=== PATIENT | male | born 1960 | race Caucasian/White ===

== ENCOUNTER 2017-12-08 06:46 | Inpatient (IN) | payer OTHER, MEDICARE ==
[~2017-12-08] VITALS: Ht 167.6 cm; Wt 126.6 kg
[2017-12-08] VITALS (26 sets, daily range): BP systolic 105–169; BP diastolic 57–97; PULSE 76–111; RESP 20–44; TEMP 97.7–99.6; O2SAT 88–96
[2017-12-08] MEDS ORDERED: FUROSEMIDE 100 MG/10 ML VIAL IVP ONE (07:00)
[2017-12-08] MEDS ORDERED: MORPHINE SULFATE 4 MG/ML INJ IV ONE (07:00)
[2017-12-08] MEDS ORDERED: NITROGLYCERIN 2% OINT 1 GM PACKET TOPICAL ONE (07:00)
[2017-12-08] MEDS ORDERED: SODIUM CHLORIDE 0.9% FLUSH 10 ML FLUSH IVF PRN (07:00)
[2017-12-08 07:03] LABS: AUTOMATED NEUTROPHIL # 9.4 TH/MM3 (1.8-7.7); BASOPHIL # 0.2 TH/MM3 (0-0.2); BASOPHIL % 1.3 % (0.0-2.0); EOSINOPHIL # 0.5 TH/MM3 (0-0.4); EOSINOPHIL % 3.3 % (0.0-4.0); HEMATOCRIT 47.1 % (39.0-51.0); MEAN CELL VOLUME 90.2 FL (80.0-100.0); MEAN CORPUSCULAR HEMOGLOBIN 30.7 PG (27.0-34.0); MEAN PLATELET VOLUME 11.7 FL (7.0-11.0); MONO % 5.9 % (0.0-8.0); MONOCYTE # 0.8 TH/MM3 (0-0.9); NEUT % 67.5 % (16.0-70.0); PLATELET COUNT 299 TH/MM3 (150-450); RED BLOOD COUNT 5.22 MIL/MM3 (4.50-5.90); RED CELL DISTRIBUTION WIDTH 13.9 % (11.6-17.2); WHITE BLOOD COUNT 13.9 TH/MM3 (4.0-11.0)
[2017-12-08] MEDS: RESP: ALBUTEROL 2.5 MG/IPRATROPIUM 0.5 MG NEB (SCH) INH ×5 (07:07→21:58)
--- NOTE | 2017-12-08 07:14 | RADRPT ---
EXAM DATE: 12/08/2017 7:05 AM EDT AGE/SEX: 57 years / Male INDICATIONS: Shortness of breath. CLINICAL DATA: This is the patient's initial encounter. Patient reports that signs and symptoms have been present for 1 day and indicates a pain score of 0/10. MEDICAL/SURGICAL HISTORY: None. None. COMPARISON: No prior exams available for comparison. FINDINGS: There is cardiomegaly, and a dual-lead pacer/ICD device is noted from a left subclavian transvenous a pproach. There is patchy bilateral consolidation most pronounced in the right lower lobe. No definite effusion. Mild interstitial prominence is also seen. CONCLUSION: Bilateral pulmonary airspace disease and interstitial prominence. Pneumonia or alternatively congesti ve heart failure may have this appearance. Electronically signed by: Giuseppe Delgado MD 12/08/2017 7:13 AM EDT
[2017-12-08 07:15] LABS: BICARBONATE 24.7 MEQ/L (21.0-32.0); CALCIUM 8.4 MG/DL (8.5-10.1)
[2017-12-08 07:47] LABS: TROPONIN I 0.04 NG/ML (0.02-0.05)
[2017-12-08] MEDS ORDERED: PRAV40TA2 PO (07:50)
[2017-12-08] MEDS ORDERED: METF1000 PO (07:50)
[2017-12-08] MEDS ORDERED: LISI10TA3 PO (07:50)
[2017-12-08] MEDS ORDERED: ASPI81TA22 PO (07:50)
[2017-12-08] MEDS ORDERED: BUME1TAB PO (07:50)
[2017-12-08] MEDS ORDERED: ALBU.5I NEB (07:50)
[2017-12-08] MEDS ORDERED: WARF4TAB51 PO (07:50)
[2017-12-08] MEDS ORDERED: CARV6.252 PO (07:50)
[2017-12-08 07:51] LABS: CREATININE 1.1 MG/DL (0.60-1.30)
--- NOTE | 2017-12-08 08:13 | PD ---
HPI . Dyspnea Chief Complaint: Respiratory Distress Time Seen by Provider: 06:49 Travel History International Travel<30 days: No Contact w/Intl Traveler<30days: No Traveled to known affect area: No History of Present Illness HPI Patient presents to us via [facility] with the chief complaint of dyspnea. Onset was about a week ago. It is acutely worse this morning. Symptoms are severe and associated with diaphoresis. He reports a history of COPD and CHF. He also has a pacemaker. He has a home nebulizer machine. He does not have BiPAP or CPAP. No known modifying factors. PFSH Past Medical History Cardiovascular Problems: Yes (CHF, pacemaker/defib) High Cholesterol: Yes Congestive Heart Failure: Yes COPD: Yes Diabetes: Yes Patient Takes Glucophage: Yes (METFORMIN) Hypertension: Yes Respiratory: Yes (COPD) Immunizations Current: Yes Past Surgical History Pacemaker: Yes (AND DEFIBRILLATOR) Other Surgery: Yes (HERNIA REPAIR, VASCULAR BYPASS RIGHT LEG) Social History Alcohol Use: No Tobacco Use: Yes (1 PPD) Substance Use: No Allergies-Medications (Allergen,Severity, Reaction): Coded Allergies: No Known Allergies (Unverified , 12/08/17) Reported Meds & Prescriptions Reported Meds & Active Scripts Active Reported Albuterol Neb (Albuterol Sulfate) 2.5 Mg/0.5 Ml Neb 2.5 Mg NEB TID NEB PRN Note: The Albuterol Sulfate Inhalation Solution is concentrated and must be diluted. Read complete instructions carefully before using. Lisinopril 10 Mg Tab 10 Mg PO DAILY Aspirin EC Low Dose (Aspirin) 81 Mg Tabec 81 Mg PO DAILY Bumetanide 1 Mg Tab 1 Mg PO DAILY PRN Metformin (Metformin HCl) 1,000 Mg Tab 1,000 Mg PO BIDPC Warfarin 2 Mg Tab 4 Mg PO DAILY Pravastatin 40 Mg Tab 40 Mg PO HS Carvedilol 6.25 Mg Tab 6.25 Mg PO BID Review of Systems ROS Limitations: Clinical Condition General / Constitutional: Positive: Other (Diaphoresis), No: Fever, Chills Respiratory: Positive: Shortness of Breath Physical Exam Narrative GENERAL: This patient is in obvious respiratory distress. He is very diaphoretic. SKIN: Cool and diaphoretic. HEAD: Normocephalic. Atraumatic. EYES: Pupils equal and round. Extraocular movements are intact. ENT: Mucous membranes pink and moist. NECK: Supple. Full range of motion without pain.. CARDIOVASCULAR: Regular rate and rhythm. Tachycardic initially. RESPIRATORY: Tachypnea with use of accessory muscles. Diffuse rales and wheezing. GASTROINTESTINAL: Abdomen soft. Nontender. Bowel sounds present. Nondistended. MUSCULOSKELETAL: Left leg amputation. Right leg with 4+ pretibial pitting edema. NEUROLOGICAL: Awake and alert. No obvious cranial nerve deficits. Motor grossly within normal limits. Normal speech. PSYCHIATRIC: Appropriate mood and affect; insight and judgment normal. Data Data Last Documented VS Vital Signs Date Time Temp Pulse Resp B/P (MAP) Pulse Ox O2 Delivery O2 Flow Rate FiO2 12/08/17 07:42 100 32 139/67 (91) 93 BiPAP 100 12/08/17 06:50 97.7 Orders Orders Complete Blood Count With Diff (12/08/17 06:49) Basic Metabolic Panel (Bmp) (12/08/17 06:49) B-Type Natriuretic Peptide (12/08/17 06:49) Troponin I (12/08/17 06:49) Ecg Monitoring (12/08/17 06:49) Oximetry (12/08/17 06:49) Oxygen Administration (12/08/17 06:49) Chest, Single Ap (12/08/17 06:49) Sodium Chloride 0.9% Flush (Ns Flush) (12/08/17 07:00) Furosemide Inj (Lasix Inj) (12/08/17 07:00) Albuterol-Ipratropium Neb (Duoneb Neb) (12/08/17 07:00) Resp Bipap / Cpap Non Invas Vt (12/08/17 06:49) Nitroglycerin 2% Oint (Nitroglycerin 2% (12/08/17 07:00) Morphine Inj (Morphine Inj) (12/08/17 07:00) Electrocardiogram (12/08/17 ) Admit Order (Ed Use Only) (12/08/17 ) Investigation Division Sergeant / Telemetry LIANNE.Q8H (12/08/17 08:17) Vital Signs (Adult) Q4H (12/08/17 08:17) Diet Heart Healthy (12/08/17 Breakfast) Activity Oob With Assistance (12/08/17 08:17) Notify Dr: Other (12/08/17 08:17) Labs Laboratory Tests Test 12/08/17 06:55 White Blood Count 13.9 TH/MM3 Red Blood Count 5.22 MIL/MM3 Hemoglobin 16.0 GM/DL Hematocrit 47.1 % Mean Corpuscular Volume 90.2 FL Mean Corpuscular Hemoglobin 30.7 PG Mean Corpuscular Hemoglobin Concent 34.0 % Red Cell Distribution Width 13.9 % Platelet Count 299 TH/MM3 Mean Platelet Volume 11.7 FL Neutrophils (%) (Auto) 67.5 % Lymphocytes (%) (Auto) 22.0 % Monocytes (%) (Auto) 5.9 % Eosinophils (%) (Auto) 3.3 % Basophils (%) (Auto) 1.3 % Neutrophils # (Auto) 9.4 TH/MM3 Lymphocytes # (Auto) 3.0 TH/MM3 Monocytes # (Auto) 0.8 TH/MM3 Eosinophils # (Auto) 0.5 TH/MM3 Basophils # (Auto) 0.2 TH/MM3 CBC Comment DIFF FINAL Differential Comment Blood Urea Nitrogen 16 MG/DL Creatinine 1.10 MG/DL Random Glucose 429 MG/DL Calcium Level 8.4 MG/DL Sodium Level 138 MEQ/L Potassium Level 4.2 MEQ/L Chloride Level 104 MEQ/L Carbon Dioxide Level 24.7 MEQ/L Anion Gap 9 MEQ/L Estimat Glomerular Filtration Rate 69 ML/MIN Troponin I 0.04 NG/ML B-Type Natriuretic Peptide 278 PG/ML MDM Medical Decision Making Medical Screen Exam Complete: Yes Emergency Medical Condition: Yes Medical Record Reviewed: Yes (This patient basically has no records in our system.) Interpretation(s) EKG shows a paced rhythm. Initial EKG has a lot of artifact. It does show some ST segment depression in V1 and V2. Repeat EKG done a short time later shows improvement in the ST segment depression. I suspect that the EKG changes were secondary to both the diaphoresis and the profound dyspnea. Differential Diagnosis Differential diagnosis of dyspnea includes but is not limited to congestive heart failure, pneumonia, wheezing, pneumothorax, pulmonary embolism Narrative Course Patient presents to us by [facility] with acute dyspnea. He was treated by [facility] with a nebulizer treatment, Solu-Medrol and a sublingual nitroglycerin. He was also placed on BiPAP per [facility]. His symptoms were improved for them by the time of his arrival here. On arrival here, BiPAP was continued. He was given Lasix 100 mg IV. Nitropaste was placed. Morphine was given. His respiratory status has continued to rapidly improved. Last Impressions Chest X-Ray 12/08/17 0649 Signed Impressions: CONCLUSION: Bilateral pulmonary airspace disease and interstitial prominence. Pneumonia or alternatively congestive heart failure may have this appearance. The chest x-ray was independently reviewed by me. CBC & BMP Diagram 12/08/17 06:55 Calcium Level 8.4 L Troponin 0 0.04 BNP 278 The patient looks much better now than he did on arrival. Critical Care Narrative Aggregate critical care time was 45 minutes. Time to perform other separately billable procedures was not included in the critical care time. My time did not include minutes spent treating any other patients simultaneously or on activities that did not directly contribute to the patient's treatment. The services I provided to this patient were to treat and/or prevent clinically significant deterioration due to respiratory distress, pulmonary edema I provided critical care services requiring my management, as noted below: Chart data review, documentation time, medication orders and management, vital sign assessments/reviewing monitor data, ordering and reviewing lab tests, ordering and interpreting/reviewing x-rays and diagnostic studies, care of the patient and discussion of the patient with the admitting physicians Physician Communication Physician Communication Dr. 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 Dr. Greene will admit. Diagnosis Primary Impression: Respiratory distress Additional Impression: Acute pulmonary edema Admitting Information Admitting Physician Requests: Admit Condition: Dara Montiel MD Dec 08, 2017 08:13
[2017-12-08] MEDS ORDERED: RESP: ALBUTEROL 2.5 MG/3 ML NEB (PRN) INH (08:30)
[2017-12-08] MEDS ORDERED: CHLORHEXIDINE GLUCONATE 2 % 1 PACK (2 CLOTHS) TOP PRN (08:30)
[2017-12-08] MEDS ORDERED: LACTULOSE SYRUP 20 GM/30 ML CUP PO PRN (08:30)
[2017-12-08] MEDS ORDERED: NURSING INFORMATION XX SCH (08:30)
[2017-12-08] MEDS ORDERED: ACETAMINOPHEN/HYDROcodone 325 MG/5 MG TAB PO PRN (08:30)
[2017-12-08] MEDS ORDERED: MAGNESIUM HYDROXIDE SUSP 30 ML CUP PO PRN (08:30)
[2017-12-08] MEDS ORDERED: ONDANSETRON HCL 4 MG/2 ML VIAL IV PUSH PRN (08:30)
[2017-12-08] MEDS ORDERED: MORPHINE SULFATE 4 MG/ML INJ IV PUSH PRN (08:30)
[2017-12-08] MEDS ORDERED: SENNOSIDES 8.6 MG TAB PO PRN (08:30)
[2017-12-08] MEDS ORDERED: BISACODYL 10 MG SUPP RECTAL PRN (08:30)
[2017-12-08] MEDS ORDERED: ACETAMINOPHEN 325 MG TAB PO PRN (08:30)
[2017-12-08] MEDS: ARTIFICIAL TEARS OPTH SOLN 15 ML BTL EACH EYE SCH ×3 (09:00→17:29)
[2017-12-08] MEDS: DOCUSATE SODIUM 50 MG/SENNA 8.6 MG TAB PO SCH ×2 (09:00→20:30)
[2017-12-08] MEDS ORDERED: CHLORHEXIDINE GLUCONATE 2 % 1 PACK (2 CLOTHS)(extra cloths) TOPICAL PRN (09:15)
[2017-12-08] MEDS ORDERED: DEXTROSE 50% IN WATER 50 ML VIAL(D50) IV PUSH PRN (09:15)
[2017-12-08] MEDS ORDERED: GLUCAGON 1 MG/ML VIAL OTHER PRN (09:15)
[2017-12-08 09:16] LABS: MAGNESIUM 1.8 MG/DL (1.5-2.5)
[2017-12-08 09:17] LABS: ALBUMIN 3.5 GM/DL (3.4-5.0)
[2017-12-08 09:19] LABS: DIRECT BILIRUBIN ADULT 0.2 MG/DL (0.0-0.2)
[2017-12-08 09:21] LABS: INDIRECT BILIRUBIN 0.5 MG/DL (0.0-0.8); TOTAL BILIRUBIN ADULT 0.7 MG/DL (0.2-1.0)
[2017-12-08 09:22] LABS: INTERNATIONAL NORMALIZED RATIO 3.1 RATIO; PROTHROMBIN TIME - PATIENT 31.4 SEC (9.8-11.6)
--- NOTE | 2017-12-08 09:28 | HHI.HP ---
[facility] Service Critical Care Medicine Primary Care Physician Julien Bird MD Admission Diagnosis resp distress, pulm edema Diagnosis: (1) Acute respiratory failure with hypoxia and hypercapnia Diagnosis: Principal (2) Coronary artery disease Diagnosis: Secondary (3) Chronic venous stasis Diagnosis: Secondary (4) Peripheral arterial disease Diagnosis: Secondary (5) History of automatic internal cardiac defibrillator (AICD) Diagnosis: Secondary (6) Chronic systolic heart failure Diagnosis: Principal (7) Hyperlipidemia Diagnosis: Secondary (8) Essential hypertension Diagnosis: Principal (9) Diabetes mellitus with diabetic neuropathy Diagnosis: Secondary (10) BMI 45.0-49.9, adult Diagnosis: Principal (11) COPD (chronic obstructive pulmonary disease) Diagnosis: Secondary Chief Complaint: Shortness of breath 1 week Travel History International Travel<30 Days: No Contact w/Intl Traveler <30 Da: No Traveled to Known Affected Are: No Sepsis Criteria SIRS Criteria (2 or more): RR > 20 or PaCO2 < 32, WBC > 59992, < 4000 or > 10 % bands Sepsis Criteria (SIRS+source): Infect source susp/known History of Present Illness This is a 57-year-old male. Date of admission 12/08/2017. Past medical history includes elevated BMI, chronic systolic heart failure, history of ASD, chronic anticoagulation with warfarin, hypertension/essential, hyperlipidemia, COPD with ongoing tobaccoism, diabetes mellitus with neuropathy , coronary disease with history of myocardial infarction and peripheral arterial disease history of a left lower extremity amputation. Patient presents to [facility] with history of "shortness of breath" since reported per patient November 24. At that time he seen by his physician as an outpatient receiving oral antibiotic was treated for 10 days. He has been taking care of his parents and is not been taking his diuretics were his medications as scheduled at home. This morning, patient awoke acutely short of breath associated diaphoresis At this facility. Chest x-ray revealed bilateral pulmonary infiltrates infectious versus coronary edema. Troponin was 0.04. EKG shows some ST depression V1 and V2 however resolved on second chest x-ray after receiving Nitropaste and 100 mg IV furosemide. No Escobar placed the patient states he is "urinate" 2 times. He appears more comfortable according to staff. Respiratory rate is currently 25 and appears comfortable. FiO2 still at 100%. Review of Systems Constitutional: COMPLAINS OF: Diaphoretic episodes, Weight gain, DENIES: Fatigue, Fever, Weight loss Endocrine: DENIES: Polydipsia, Polyuria Eyes: DENIES: Blurred vision, Double Vision Ears, nose, mouth, throat: DENIES: Ear Pain Respiratory: COMPLAINS OF: Shortness of breath, DENIES: Apneas, Cough, Sputum production Cardiovascular: DENIES: Chest pain Gastrointestinal: DENIES: Abdominal pain Genitourinary: DENIES: Urgency, Hematuria, Dysuria, Nocturia Musculoskeletal: DENIES: Joint pain Integumentary: COMPLAINS OF: Abnormal pigmentation, DENIES: Nail changes Hematologic/lymphatic: DENIES: Bruising Immunologic/allergic: DENIES: Eczema Neurologic: DENIES: Abnormal gait, Headache Psychiatric: COMPLAINS OF: Anxiety, DENIES: Confusion Past Family Social History Allergies: Coded Allergies: No Known Allergies (Unverified , 12/08/17) Past Medical History Elevated BMI COPD with ongoing tobaccoism Essential hypertension Hyperlipidemia Chronic systolic heart failure Peripheral arterial disease status post amputation of the left lower extremity Diabetes mellitus with peripheral neuropathy History of hypercoagulable state PAD Chronic warfarin use Past Surgical History AICD/defibrillator Hernia repair Left lower extremity amputation with history of thrombectomy and femoropopliteal bypass Right lower extremity femorofemoral bypass with graft removal Reported Medications Aspirin 81 mg by mouth daily Pravastatin 40 mg by mouth daily Lisinopril 10 mg by mouth daily Carvedilol 6.25 mg by mouth twice daily Warfarin 4 mg by mouth daily Bumetanide 1 mg by mouth as needed Metformin 1000 mg by mouth daily Albuterol/ipratropium aerosols as needed Active Ordered Medications Reviewed in EMR Family History Positive for coronary disease and peripheral vascular disease Social History 1 pack per day tobacco 40 years. Positive occasional THC use. Denies alcohol use. Physical Exam Vital Signs Vital Signs Date Time Temp Pulse Resp B/P (MAP) Pulse Ox O2 Delivery O2 Flow Rate FiO2 12/08/17 07:42 100 32 139/67 (91) 93 BiPAP 100 12/08/17 07:15 44 93 BiPAP 100 12/08/17 07:15 93 BiPAP 100 12/08/17 07:12 105 36 161/80 (107) 94 BiPAP 100 12/08/17 07:00 120 48 93 BiPAP 100 12/08/17 06:50 92 BiPAP 100 12/08/17 06:50 97.7 111 169/82 (111) 12/08/17 06:50 93 100 Physical Exam GENERAL: 57-year-old male currently resting in ED bed 19 [place] on BiPAP in mild respiratory distress SKIN: Warm and dry. Chronic venous stasis right lower extremity. HEAD: Atraumatic. Normocephalic. EYES: Pupils equal and round about 3 mm bilaterally and reactive to 2. No scleral icterus. No injection or drainage. ENT: No nasal bleeding or discharge. Mucous membranes pink and moist. NECK: Trachea midline. Unable to define JVD secondary to body habitus CARDIOVASCULAR: Tachycardic/paced. S1, S2. No S4. Without murmur RESPIRATORY: Mild accessory muscle use. Diminished anteriorly. Few crackles patient in the t bases bilaterally. Positive end expiratory wheeze GASTROINTESTINAL: Abdomen soft, non-tender, nondistended. Hepatic and splenic margins not palpable. MUSCULOSKELETAL: Extremities DVTs in the left lower extremity above the knee. Right lower extremity chronic venous stasis and 1+ pitting edema below the knee. NEUROLOGICAL: Awake and alert. No obvious cranial nerve deficits. Motor grossly within normal limits. Five out of 5 muscle strength in the arms and legs. Normal speech. Diminished sensation light touch pinprick bilateral lower extremities PSYCHIATRIC: Appropriate mood and affect; insight and judgment normal. Laboratory Laboratory Tests Test 12/08/17 06:55 12/08/17 09:00 White Blood Count 13.9 Red Blood Count 5.22 Hemoglobin 16.0 Hematocrit 47.1 Mean Corpuscular Volume 90.2 Mean Corpuscular Hemoglobin 30.7 Mean Corpuscular Hemoglobin Concent 34.0 Red Cell Distribution Width 13.9 Platelet Count 299 Mean Platelet Volume 11.7 Neutrophils (%) (Auto) 67.5 Lymphocytes (%) (Auto) 22.0 Monocytes (%) (Auto) 5.9 Eosinophils (%) (Auto) 3.3 Basophils (%) (Auto) 1.3 Neutrophils # (Auto) 9.4 Lymphocytes # (Auto) 3.0 Monocytes # (Auto) 0.8 Eosinophils # (Auto) 0.5 Basophils # (Auto) 0.2 CBC Comment DIFF FINAL Differential Comment Blood Urea Nitrogen 16 Creatinine 1.10 Random Glucose 429 Calcium Level 8.4 Sodium Level 138 Potassium Level 4.2 Chloride Level 104 Carbon Dioxide Level 24.7 Anion Gap 9 Estimat Glomerular Filtration Rate 69 Magnesium Level 1.8 Troponin I 0.04 B-Type Natriuretic Peptide 278 Albumin 3.5 Blood Gas Puncture Site RT RADIAL Blood Gas Patient Temperature 98.6 Blood Gas HCO3 26 Blood Gas Base Excess 0.8 Blood Gas Oxygen Saturation 91 Arterial Blood pH 7.32 Arterial Blood Partial Pressure CO2 53 Arterial Blood Partial Pressure O2 77 Arterial Blood Oxygen Content 20.0 Arterial Blood Carboxyhemoglobin 2.8 Arterial Blood Methemoglobin 1.1 Blood Gas Hemoglobin 15.6 Oxygen Delivery Device BIPAP Blood Gas Ventilator Setting IPAP18/EPAP5 Blood Gas Inspired Oxygen 100 Result Diagram: 12/08/1765412/08/17654 Imaging Last Impressions Chest X-Ray 12/08/17648 Signed Impressions: CONCLUSION: Bilateral pulmonary airspace disease and interstitial prominence. Pneumonia or alternatively congestive heart failure may have this appearance. Septic Shock Reassessment Septic shock perfusion: reassessment completed Caprini VTE Risk Assessment Caprini VTE Risk Assessment: Mod/High Risk (score >= 2) VTE Pharm Contraindication: Documented Caprini Risk Assessment Model Point Value = 1 Point Value = 2 Point Value = 3 Point Value = 5 Age 41-60 Minor surgery BMI > 25 kg/m2 Swollen legs Varicose veins or History of unexplained or recurrent spontaneous Oral contraceptives or hormone replacement Sepsis (< 1 month) Serious lung disease, including pneumonia (< 1 month) Abnormal pulmonary function Acute myocardial infarction Congestive heart failure (< 1 month) History of inflammatory bowel disease Medical patient at bed rest Age 61-74 Arthroscopic surgery Major open surgery (> 45 min) Laparoscopic surgery (> 45 min) Malignancy Confined to bed (> 72 hours) Immobilizing plaster cast Central venous access Age >= 75 History of VTE Family history of VTE Factor V Leiden Prothrombin [id number] Lupus anticoagulant Anticardiolipin antibodies Elevated serum homocysteine Heparin-induced thrombocytopenia Other congenital or acquired thrombophilia Stroke (< 1 month) Elective arthroplasty Hip, pelvis, or leg fracture Acute spinal cord injury (< 1 month) Prophylaxis Regimen Total Risk Factor Score Risk Level Prophylaxis Regimen 0-1 Low Early ambulation 2 Moderate Order ONE of the following: *Sequential Compression Device (SCD) *Heparin 5000 units SQ BID 3-4 Higher Order ONE of the following medications: *Heparin 5000 units SQ TID *Enoxaparin/Lovenox 40 mg SQ daily (WT < 150 kg, CrCl > 30 mL/min) *Enoxaparin/Lovenox 30 mg SQ daily (WT < 150 kg, CrCl > 10-29 mL/min) *Enoxaparin/Lovenox 30 mg SQ BID (WT < 150 kg, CrCl > 30 mL/min) AND/OR *Sequential Compression Device (SCD) 5 or more Highest Order ONE of the following medications: *Heparin 5000 units SQ TID (Preferred with Epidurals) *Enoxaparin/Lovenox 40 mg SQ daily (WT < 150 kg, CrCl > 30 mL/min) *Enoxaparin/Lovenox 30 mg SQ daily (WT < 150 kg, CrCl > 10-29 mL/min) *Enoxaparin/Lovenox 30 mg SQ BID (WT < 150 kg, CrCl > 30 mL/min) AND *Sequential Compression Device (SCD) Assessment and Plan Assessment and Plan Neuro/Psych: Diabetes mellitus neuropathy Acetaminophen 650 mg every 6 hours as needed fever Hydrocodone/acetaminophen 5/325 1 tab every 4 hours as needed pain 1 through 5 Morphine sulfate 2 mg IV every 2 hours as needed pain 6-10 CV: Chronic systolic heart failure Essential hypertension Hyperlipidemia Status post AICD/pacemaker Peripheral arterial disease status post left lower extremity amputation Resume home medications of carvedilol 6.25 mg twice daily and lisinopril 10 mg daily for hypertension Continue pravastatin 40 mg by mouth daily for dyslipidemia Continue aspirin 81 mg by mouth daily EKG revealed paced rhythm. Modifiable ST depression V1 and V2. Initial troponin 0.04. Will trend downward Routine 2D echocardiogram ordered 2011 echo revealed EF 35%. Inferior posterior hypokinesis. LV dilated. Resp: Acute hypoxic hypercapnic respiratory failure COPD Currently on BiPAP 18/8 100%. PH 6 7.32. PCO2 53. PO2 of 77. Bicarbonate 26 BE 1. Currently on albuterol/ipratropium aerosols every 6 hours W aerosols every 2 hours needed dyspnea On albuterol/ipratropium nebs at home Methylprednisolone 40 mg IV twice daily/budesonide 0.5/2 1 inhalation twice daily Chest x-ray revealed bilateral lower lobe pulmonary edema/infiltrates. Received 100 cc furosemide in ED. scheduled twice daily 40 mg for Chest x-ray ordered for a.m. 6/10 GI: Advance diet as tolerated ADA Famotidine for GI prophylaxis Docusate sodium/senna 1 tablet twice daily for bowel regimen Follow-up on hepatic profile : Escobar catheter if indicated for accurate I's and O's in a critically ill patient Endo: Diabetes mellitus with neuropathy SSI with Novulin R with Accu-Cheks before meals/at bedtime in order to maintain the lithium/high regimen Renal: Creatinine currently within normal limits Monitor urine output Accurate I's and O's Heme: Chronic warfarin use secondary to hypercoagulable state question sallie Normocytic anemia Coags currently pending Monitor CBC daily. Follow trends ID: Blood cultures 2, sputum and influenza all ordered Empiric antibiotics with levofloxacin 750 mg IV daily MSK: BMI 46.1 Weight loss encouraged PT evaluate and treat FEN: Replace electrolytes as clinically indicated per ICU electrolyte protocol Access -Utilize peripheral IV. Central line if indicated Prophylaxis -GI -famotidine -DVT -SCD/patient is currently on warfarin to provide pharmacological prophylaxis Level 3 H&P Code Status Full code Discussed Condition With Dr. Odom/ED physicians. Patient. Care plan discussed and all questions answered. Problem Qualifiers (1) Coronary artery disease: Qualified Codes: I25.10 - Atherosclerotic heart disease of rincon coronary artery without angina pectoris (2) Hyperlipidemia: Qualified Codes: E78.5 - Hyperlipidemia, unspecified (3) Diabetes mellitus with diabetic neuropathy: Qualified Codes: E10.40 - Type 1 diabetes mellitus with diabetic neuropathy, unspecified (4) COPD (chronic obstructive pulmonary disease): Qualified Codes: J44.1 - Chronic obstructive pulmonary disease with (acute) exacerbation Bashir Greene MD Dec 08, 2017 09:28
[2017-12-08] MEDS ORDERED: POTASSIUM CHLORIDE 25 MEQ EFFERVESCENT TAB PO PRN (09:45)
[2017-12-08] MEDS ORDERED: POTASSIUM PHOSPHATE MONOBASIC 500 MG TAB PO/TUBE PRN (09:45)
[2017-12-08] MEDS ORDERED: MAGNESIUM SULFATE INJ 4 GM in SODIUM CHLORIDE 0.9% INJ 92 ML IV PRN (09:45)
[2017-12-08] MEDS ORDERED: MAGNESIUM OXIDE 400 MG TAB PO PRN (09:45)
[2017-12-08] MEDS ORDERED: POTASSIUM CHLOR 20 MEQ PREMIX 100 ML IV PRN ×2 (09:45)
[2017-12-08] MEDS ORDERED: SODIUM PHOSPHATE INJ 30 MMOL in SODIUM CHLOR 0.9% 250 ML INJ 240 ML IV PRN (09:45)
[2017-12-08] MEDS ORDERED: POTASSIUM PHOSPHATE INJ 30 MMOL in SODIUM CHLOR 0.9% 250 ML INJ 250 ML IV PRN (09:45)
[2017-12-08] MEDS ORDERED: MAGNESIUM SULFATE INJ 2 GM in SODIUM CHLORIDE 0.9% INJ 96 ML IV PRN (09:45)
[2017-12-08] MEDS ORDERED: POTASSIUM CHLOR 40 MEQ PREMIX 100 ML IV PRN ×2 (09:45)
[2017-12-08] MEDS ORDERED: POTASSIUM PHOSPHATE MONOBASIC 500 MG TAB PO PRN (09:45)
[2017-12-08] MEDS: LEVOFLOXACIN 750 MG PREMIX INJ 150 ML IV SCH (10:14)
[2017-12-08] MEDS: FAMOTIDINE 20 MG/2 ML VIAL IV PUSH SCH ×2 (10:15→20:30)
[2017-12-08] MEDS: SODIUM CHLORIDE 0.9% FLUSH 10 ML FLUSH IV FLUSH SCH ×2 (10:16→20:31)
[2017-12-08] MEDS: methylPREDNISolone SOD SUCC 40 MG/1 ML VIAL IV PUSH SCH ×2 (10:21→20:29)
--- NOTE | 2017-12-08 12:12 | RADRPT ---
EXAM DATE: 12/08/2017 12:09 PM EDT AGE/SEX: 57 years / Male INDICATIONS: Right leg swelling. CLINICAL DATA: This is the patient's initial encounter. Patient reports that signs and symptoms have been present for 1 day and indicates a pain score of 0/10. MEDICAL/SURGICAL HISTORY: Hypercholesterolemia. Hypertension. Chronic obstructive pulmonary d isease. CHF. Hernia. . Hernia repair. Pacemaker. Right leg vascular bypass. COMPARISON: No prior exams available for comparison. TECHNIQUE: Venous ultrasound of both lower extremities was performed from the inguinal ligament to t he proximal calf. Real-time, color Doppler and spectral tracing, compression and augmentation techni ques were used. FINDINGS: There is normal compressibility of the deep venous system from the inguinal region to the proximal ca lf. No echogenic clot is seen in the lumen of the common femoral, femoral, popliteal, and posterior tibial veins. There is a normal response of the venous system to proximal and distal augmentation an d respiration. CONCLUSION: 1. The study is negative for lower extremity deep venous thrombosis. Electronically signed by: Adalid Aguilera MD 12/08/2017 12:11 PM EDT
[2017-12-08] MEDS: INSULIN ASPART SUPPLEMENTAL SCALE SQ SCH ×3 (12:52→20:28)
[2017-12-08] MEDS: INSULIN DETEMIR 100 UNITS/ML VIAL SQ SCH ×2 (12:52→20:28)
[2017-12-08] MEDS ORDERED: CHLOROTHIAZIDE SOD 500 MG VIAL IV ONE (13:00)
--- NOTE | 2017-12-08 14:45 | EKG ---
Date Performed: 12/08/2017 Time Performed: 07:27:34 PTAGE: 57 years EKG: ELECTRONIC VENTRICULAR PACEMAKER ABNORMAL RHYTHM ECG NO PREVIOUS TRACING DOCTOR: Bayron Sorenson Interpretating Date/Time 12/08/2017 14:44:07
[2017-12-08] MEDS ORDERED: WARFARIN SOD 4 MG TAB PO SCH (16:00)
[2017-12-08] MEDS: FUROSEMIDE 40 MG/4 ML VIAL IV PUSH SCH (17:29)
[2017-12-08 19:11] LABS: PHOSPHORUS 3.4 MG/DL (2.5-4.9)
[2017-12-08 19:15] LABS: TROPONIN I 0.06 NG/ML (0.02-0.05)
[2017-12-08] MEDS: RESP: BUDESONIDE 0.5 MG/2 ML NEB NEB SCH (20:06)
[2017-12-08] MEDS: PRAVASTATIN SOD 40 MG TAB PO SCH (20:30)
[2017-12-08] MEDS: CARVEDILOL 6.25 MG TAB PO SCH (20:30)
--- NOTE | 2017-12-08 22:39 | MB ---
cc: Jaspreet Gibbons Vincent G DO DATE: 12/08/2017 REASON FOR CONSULTATION: Pulmonary edema. HISTORY OF PRESENT ILLNESS: Tre Agudelo is a pleasant 57-year-old male who sees my partner, Dr. Sorenson, in the office and presented to [facility] Emergency Room due to shortness of breath. The patient states that he had a stress test somewhere around a year ago with Dr. Sorenson. He states that he had been noticing some shortness of breath as well as mucus production since 10/2005. He was placed on an antibiotic by his primary care physician and, after taking it for 10 days, he called them and stated that he was not feeling better and thought maybe it was somewhat his allergies. They said that he should not be placed on further antibiotics before being evaluated. He came into the emergency room and was found to be short of breath. He has since been diuresed and feeling somewhat better. He denies any chest pain. He has been taking care of his parents and has not been taking his diuretics as scheduled as his medications are at home. Before being evaluated he woke up more short of breath this morning and somewhat diaphoretic and so he came to the emergency room. He denies any chest pain with the episodes. He was found to have bilateral pulmonary infiltrates concerning for pulmonary edema and he has since been diuresed. In seeing him, he is currently hemodynamically stable without chest pain and his shortness of breath is overall better. PAST MEDICAL HISTORY: 1. COPD. 2. Hypertension. 3. Hyperlipidemia. 4. Chronic systolic heart failure. 5. Peripheral artery disease. 6. Diabetes mellitus with peripheral neuropathy. 7. History of hypercoagulable state. 8. Chronic anticoagulation with Coumadin. PAST SURGICAL HISTORY: 1. AICD placement. 2. Hernia repair. 3. 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 4. Right lower extremity fem-fem bypass with graft removal. ALLERGIES: NO KNOWN DRUG ALLERGIES. MEDICATIONS: 1. Albuterol as needed for shortness of breath. 2. Coumadin 4 mg daily. 3. Pravastatin 4 mg every night. 4. Coreg 6.25 mg b.i.d. 5. Lisinopril 10 mg daily. 6. Aspirin 81 mg daily. 7. Bumex 1 mg daily as needed. 8. Metformin 1000 mg b.i.d. FAMILY HISTORY: Positive for coronary artery disease and peripheral vascular disease. Denies sudden cardiac within the family. SOCIAL HISTORY: The patient smokes a pack a day of cigarettes for 40 years. He occasionally uses marijuana. Denies alcohol. REVIEW OF SYSTEMS: Fourteen systems were reviewed including osteopathic. Pertinent positives and negatives as above, otherwise negative. PHYSICAL EXAMINATION: VITAL SIGNS: Temperature 98.2, heart rate 92, blood pressure 112/86, respirations 28, pulse oximetry 95% on a Venturi mask. GENERAL: The patient appears well in no acute distress, alert, awake and oriented x3. HEENT: Extraocular muscles intact. Mucous membranes moist. NECK: Supple. No JVD at 45 degrees. No carotid bruits heard bilaterally. Carotid upstroke is brisk in nature. HEART: Regular rate and rhythm. Positive first and second heart sounds with no noted murmurs, gallops or rubs. LUNGS: Decreased breath sounds bilaterally with rales noted at the bases. ABDOMEN: Soft, nontender, nondistended. No organomegaly noted. EXTREMITIES: Show left [id number] amputation. Right lower extremity with trace edema. NEUROLOGIC: No focal deficits. SKIN: Warm, dry and intact. OSTEOPATHIC: Mild lordosis, no kyphoscoliosis or paraspinal tender points. LABORATORY DATA: Hemoglobin 16.0, hematocrit 47.1, platelets 299. INR 3.1, potassium 4.2, BUN 16, creatinine 1.10. Troponin 0.09 decreasing to 0.06. Lactic acid 2.3. CARDIOLOGY STUDIES: Electrocardiogram (12/08/2017 at 0727): Sinus rhythm with ventricular pacing. ASSESSMENT AND PLAN: 1. Acute decompensated systolic heart failure. 2. Elevated troponin. 3. Acute hypoxic hypercapnic respiratory failure. 4. Chronic obstructive pulmonary disease. 5. Diabetes mellitus with neuropathy. 6. Obesity with a body mass index of 46. 7. Noncompliance with his diuretics. 8. Known cardiomyopathy with implantable cardioverter defibrillator in place. 9. Lactic acidosis. RECOMMENDATIONS: 1. Mr. Agudelo presented with what appears to be shortness of breath, most likely multifactorial, partially due to acute decompensated heart failure as well as chronic obstructive pulmonary disease exacerbation. We will continue to diurese him, as I think a significant portion of his shortness of breath is due to heart failure. This is most likely due to noncompliance with his diuretics, as he has been taking care of his parents and not at home taking them as regularly scheduled. 2. He will continue on Coumadin for his chronic hypercoagulable state. 3. He does have a minimally elevated troponin, but this is most likely due to his overall illness including his acute heart failure. 4. We will continue him on his carvedilol and lisinopril for his known cardiomyopathy. Per the office records, his previous ejection fraction was 25%. 5. We will check a 2-Dimensional echocardiogram to look at his overall left ventricular function, cardiac structure and possible valvulopathies. 6. Further recommendations will be made based on the hospital course. Thank you for allowing me to see Scott. Agudelo. If you have any questions, please do not hesitate to call. DO ELIZABETH Damon/ , 09:20 PM , 10:38 PM
[2017-12-09] VITALS (44 sets, daily range): BP systolic 96–161; BP diastolic 52–96; PULSE 66–98; RESP 16–33; TEMP 97.5–98.4; O2SAT 71–99
[2017-12-09] MEDS: RESP: ALBUTEROL 2.5 MG/IPRATROPIUM 0.5 MG NEB (SCH) INH ×4 (03:50→22:08)
[2017-12-09] MEDS ORDERED: CHLORHEXIDINE GLUCONATE 2 % 1 PACK (2 CLOTHS) TOP SCH (04:00)
[2017-12-09] MEDS: CHLORHEXIDINE GLUCONATE 2 % 1 PACK (2 CLOTHS)(taper/protocol) TOPICAL SCH (04:00)
[2017-12-09] MEDS ORDERED: INSULIN ASPART 1,000 UNITS/10 ML VIAL SQ ONE (04:15)
--- NOTE | 2017-12-09 05:59 | RADRPT ---
EXAM DATE: 12/09/2017 5:52 AM EDT AGE/SEX: 57 years / Male INDICATIONS: Shortness of breath. CLINICAL DATA: This is the patient's subsequent encounter. Patient reports that signs and symptoms h ave been present for 2 days and indicates a pain score of Nonresponsive. MEDICAL/SURGICAL HISTORY: Hypercholesterolemia. Hypertension. Chronic obstructive pulmonary d isease. Congestive heart failure. Hernia. Pacemaker. Hernia repair. Right leg vascular bypass. COMPARISON: [facility], CHEST SINGLE AP, 12/08/2017. . FINDINGS: Single view the chest the heart slightly enlarged. There is a left subclavian bipolar pacer in good p osition. Mild pulmonary vascular congestion improved from the previous study CONCLUSION: Heart is enlarged. Mild pulmonary vascular congestion has improved Electronically signed by: César Beauchamp MD 12/09/2017 5:57 AM EDT
[2017-12-09 06:42] LABS: AUTOMATED NEUTROPHIL # 14.1 TH/MM3 (1.8-7.7); BASOPHIL # 0.3 TH/MM3 (0-0.2); BASOPHIL % 1.8 % (0.0-2.0); HEMATOCRIT 45.9 % (39.0-51.0); HEMOGLOBIN 15.5 GM/DL (13.0-17.0); LYMPH % 6.9 % (9.0-44.0); LYMPHOCYTE # 1.1 TH/MM3 (1.0-4.8); MEAN CELL VOLUME 90.1 FL (80.0-100.0); MEAN CORPUSCULAR HEMOGLOBIN 30.5 PG (27.0-34.0); MEAN CORPUSCULAR HGB CONC 33.8 % (32.0-36.0); MEAN PLATELET VOLUME 11.2 FL (7.0-11.0); MONO % 3.8 % (0.0-8.0); MONOCYTE # 0.6 TH/MM3 (0-0.9); NEUT % 87.5 % (16.0-70.0); PLATELET COUNT 252 TH/MM3 (150-450); RED CELL DISTRIBUTION WIDTH 13.4 % (11.6-17.2); WHITE BLOOD COUNT 16.1 TH/MM3 (4.0-11.0)
[2017-12-09 06:59] LABS: INTERNATIONAL NORMALIZED RATIO 2.6 RATIO; PROTHROMBIN TIME - PATIENT 26.5 SEC (9.8-11.6)
[2017-12-09 07:44] LABS: ALBUMIN 3.3 GM/DL (3.4-5.0); BLOOD UREA NITROGEN 30 MG/DL (7-18); GLOMERULAR FILTRATION RATE 62 ML/MIN (>89); GLUCOSE,RANDOM 368 MG/DL (74-106); PHOSPHORUS 3.8 MG/DL (2.5-4.9); TOTAL PROTEIN 7.4 GM/DL (6.4-8.2)
[2017-12-09 07:45] LABS: ALKALINE PHOSPHATASE 7 U/L (45-117); ALT (GPT) 36 U/L (12-78); AST (GOT) 16 U/L (15-37); BICARBONATE 28.8 MEQ/L (21.0-32.0); CHLORIDE 98 MEQ/L (98-107); MAGNESIUM 1.9 MG/DL (1.5-2.5); SODIUM (NA) 135 MEQ/L (136-145); TOTAL BILIRUBIN ADULT 0.6 MG/DL (0.2-1.0)
[2017-12-09] MEDS: RESP: BUDESONIDE 0.5 MG/2 ML NEB NEB SCH ×2 (07:51→19:46)
[2017-12-09] MEDS ORDERED: INSULIN DETEMIR 100 UNITS/ML VIAL SQ SCH (08:15)
[2017-12-09] MEDS: INSULIN ASPART SUPPLEMENTAL SCALE SQ SCH ×4 (08:19→21:26)
[2017-12-09] MEDS: ARTIFICIAL TEARS OPTH SOLN 15 ML BTL EACH EYE SCH ×3 (08:48→17:37)
[2017-12-09] MEDS: CARVEDILOL 6.25 MG TAB PO SCH ×2 (08:49→21:25)
[2017-12-09] MEDS: SODIUM CHLORIDE 0.9% FLUSH 10 ML FLUSH IV FLUSH SCH ×2 (08:49→21:24)
[2017-12-09] MEDS: ASPIRIN EC 81 MG TABEC PO SCH (08:50)
[2017-12-09] MEDS: LISINOPRIL 10 MG TAB PO SCH (08:50)
[2017-12-09] MEDS: FUROSEMIDE 40 MG/4 ML VIAL IV PUSH SCH ×2 (08:57→17:37)
[2017-12-09] MEDS: DOCUSATE SODIUM 50 MG/SENNA 8.6 MG TAB PO SCH ×2 (09:00→21:25)
[2017-12-09] MEDS: methylPREDNISolone SOD SUCC 40 MG/1 ML VIAL IV PUSH SCH ×2 (09:04→21:25)
[2017-12-09] MEDS: FAMOTIDINE 20 MG/2 ML VIAL IV PUSH SCH ×2 (09:13→21:24)
[2017-12-09] MEDS: LEVOFLOXACIN 750 MG PREMIX INJ 150 ML IV SCH (10:19)
--- NOTE | 2017-12-09 13:53 | ECHRPT ---
Indication: HEART FAILURE CONCLUSIONS The left ventricular systolic function is severely reduced with an estimated ejection fraction in th e range of 30-35%. Severely dilated left ventricle. Akinetic inferior wall motion with thinning, consistent with scar. Mild mitral valve regurgitation. There is trace tricuspid valve regurgitation. BP: / HR: Rhythm: MEASUREMENTS (Male / Female) Normal Values Technical Quality: 2D ECHO LV Diastolic Diameter PLAX 8.2 cm 4.2 - 5.9 / 3.9 - 5.3 cm LV Systolic Diameter PLAX 6.9 cm IVS Diastolic Thickness 1.5 cm 0.6 - 1.0 / 0.6 - 0.9 cm LVPW Diastolic Thickness 0.9 cm 0.6 - 1.0 / 0.6 - 0.9 cm LV Relative Wall Thickness 0.3 RV Internal Dim ED PLAX 2.1 cm LA Systolic Diameter LX 5.3 cm 3.0 - 4.0 / 2.7 - 3.8 cm M-MODE Aortic Root Diameter MM 4.1 cm AV Cusp Separation MM 2.2 cm DOPPLER Mitral E Point Velocity 102.0 cm/s Mitral A Point Velocity 47.9 cm/s Mitral E to A Ratio 2.1 TR Peak Velocity 189.0 cm/s TR Peak Gradient 14.3 mmHg Right Atrial Pressure 10.0 mmHg Pulmonary Artery Systolic Pressu 24.3 mmHg Right Ventricular Systolic Press 24.3 mmHg FINDINGS LEFT VENTRICLE Severely dilated left ventricle. There is assymetric septal hypertrophy. The left ventricular systolic function is severely reduced with an estimated ejection fraction in th e range of 30-35%. Akinetic inferior wall motion with thinning, consistent with scar. RIGHT VENTRICLE Normal right ventricular size and systolic function. LEFT ATRIUM The left atrial size is moderately dilated. RIGHT ATRIUM The right atrial size is normal. ATRIAL SEPTUM Normal atrial septal thickness AORTA The aortic root and proximal ascending aorta are normal in size on limited imaging. MITRAL VALVE Grossly normal mitral valve. Moderate mitral annular calcification. Mild mitral valve regurgitation. No mitral valve stenosis. AORTIC VALVE Trileaflet aortic valve. No aortic valve stenosis or regurgitation. TRICUSPID VALVE Structurally normal tricuspid valve. There is trace tricuspid valve regurgitation. No tricuspid valve stenosis. PULMONARY VALVE No pulmonary valve regurgitation or stenosis. VESSELS The inferior vena cava is normal in size. PERICARDIUM No pericardial effusion. Jaspreet Gibbons DO (Electronically Signed) Final Date:09 December 2017 13:53
[2017-12-09] MEDS: WARFARIN SOD 2 MG TAB PO SCH (16:37)
--- NOTE | 2017-12-09 17:18 | PD.CARD.PN ---
Subjective Subjective Remarks No events overnight Diuresed 6L yesterday Not as much today as he was taking in too much liquid on his liquid diet SOB better, no chest pains Objective Medications Current Medications Medications (Trade) Dose Ordered Sig/Chris Route Start Time Stop Time Status Last Admin (NS Flush) 2 ml UNSCH PRN IV FLUSH 12/08/17 08:30 (NS Flush) 2 ml BID IV FLUSH 12/08/17 09:00 12/09/17 08:49 (Tylenol) 650 mg Q6H PRN PO 12/08/17 08:30 ([place] 5-325 Mg) 1 tab Q4H PRN PO 12/08/17 08:30 (Morphine Inj) 2 mg Q2H PRN IV PUSH 12/08/17 08:30 (Pepcid Inj) 20 mg Q12HR IV PUSH 12/08/17 09:00 12/09/17 09:13 (Tears Naturale Opth Soln) 1 drop TID EACH EYE 12/08/17 09:00 12/09/17 12:16 (Zofran Inj) 4 mg Q6H PRN IV PUSH 12/08/17 08:30 (Duoneb Neb) 1 ampule Q6HR NEB INH 12/08/17 10:00 12/09/17 15:18 (Albuterol Neb) 2.5 mg Q2HR NEB PRN INH 12/08/17 08:30 (Iesha-Colace) 1 tab BID PO 12/08/17 09:00 (Milk Of Magnesia Liq) 30 ml Q12H PRN PO 12/08/17 08:30 (Senokot) 17.2 mg Q12H PRN PO 12/08/17 08:30 (Dulcolax Supp) 10 mg DAILY PRN RECTAL 12/08/17 08:30 (Lactulose Liq) 30 ml DAILY PRN PO 12/08/17 08:30 (Ecotrin Ec) 81 mg DAILY PO 12/09/17 09:00 12/09/17 08:50 (Coreg) 6.25 mg BID PO 12/08/17 21:00 12/09/17 08:49 (Prinivil) 10 mg DAILY PO 12/09/17 09:00 12/09/17 08:50 (Pravachol) 40 mg HS PO 12/08/17 21:00 12/08/17 20:30 ([facility] Patient in critical care unit? Ass... Q361D .XX 12/08/17 09:15 (Chlorhexidine 2% Cloth) 3 pack DAILY@04 TOPICAL 12/09/17 04:00 12/13/17 04:01 12/09/17 04:00 (Chlorhexidine 2% Cloth) 3 pack UNSCH PRN TOPICAL 12/08/17 09:15 12/13/17 09:07 (D50w (Vial) Inj) 50 ml UNSCH PRN IV PUSH 12/08/17 09:15 (Glucagon Inj) 1 mg UNSCH PRN OTHER 12/08/17 09:15 (NovoLOG SUPPLEMENTAL SCALE) 1 ACHS SLIDING SCALE SQ 12/08/17 12:00 12/09/17 12:14 (SoluMEDROL INJ) 40 mg Q12HR IV PUSH 12/08/17 09:15 12/09/17 09:04 (Lasix Inj) 40 mg BID@ IV PUSH 12/08/17 18:00 12/09/17 08:57 Potassium Chloride 100 ml @ 50 mls/hr Q2H PRN IV 12/08/17 09:45 Potassium Chloride 100 ml @ 50 mls/hr Q2H PRN IV 12/08/17 09:45 (K-Lyte Cl Eff) 50 meq UNSCH PRN PO 12/08/17 09:45 Potassium Chloride 100 ml @ 25 mls/hr UNSCH PRN IV 12/08/17 09:45 Potassium Chloride 100 ml @ 50 mls/hr Q2H PRN IV 12/08/17 09:45 Magnesium Sulfate 4 gm/Sodium Chloride 100 ml @ 50 mls/hr UNSCH PRN IV 12/08/17 09:45 (Mag-Ox) 800 mg UNSCH PRN PO 12/08/17 09:45 Magnesium Sulfate 2 gm/Sodium Chloride 100 ml @ 50 mls/hr UNSCH PRN IV 12/08/17 09:45 (K-Phos) 2,000 mg Q4H PRN PO 12/08/17 09:45 Sodium Phosphate 30 mmol/Sodium Chloride 250 ml @ 42 mls/hr UNSCH PRN IV 12/08/17 09:45 (K-Phos) 2,000 mg UNSCH PRN PO/TUBE 12/08/17 09:45 Potassium Phosphate 30 mmol/ Sodium Chloride 260 ml @ 42 mls/hr UNSCH PRN IV 12/08/17 09:45 Levofloxacin/ Dextrose 150 ml @ 100 mls/hr Q24H IV 12/08/17 10:00 12/09/17 10:19 (Pulmicort Respule Neb) 0.5 mg Q12HR NEB NEB 12/08/17 20:00 12/09/17 07:51 (Levemir Inj) 10 units Q12HR SQ 12/09/17 08:15 12/09/17 08:28 Pharmacy Profile Note ml @ 0 mls/hr UNSCH OTHER 12/09/17 16:15 (Coumadin) 2 mg DAILY@1600 PO 12/09/17 17:00 12/09/17 16:37 Vital Signs / I&O Vital Signs Date Time Temp Pulse Resp B/P (MAP) Pulse Ox O2 Delivery O2 Flow Rate FiO2 12/09/17 17:01 68 21 132/70 (90) 93 12/09/17 16:44 97.8 12/09/17 16:33 70 20 97 12/09/17 16:23 68 12/09/17 16:18 68 16 98 12/09/17 16:18 74 21 134/69 (90) 71 12/09/17 15:57 97 55 12/09/17 15:01 80 18 140/74 (96) 95 12/09/17 14:18 79 12/09/17 14:09 88 17 123/73 (90) 93 12/09/17 13:01 84 23 132/74 (93) 95 12/09/17 12:28 91 12/09/17 12:01 98.0 84 19 96 12/09/17 12:01 84 19 123/69 (87) 96 12/09/17 11:01 70 33 113/52 (72) 91 12/09/17 10:33 70 20 102/66 (78) 92 12/09/17 10:00 86 12/09/17 09:33 97 Venturi Mask 6.00 12/09/17 09:30 86 20 94 12/09/17 09:27 88 23 136/69 (91) 93 12/09/17 08:40 86 22 161/85 (110) 96 12/09/17 08:15 97 Partial Rebreather 9.00 12/09/17 08:01 76 19 108/53 (71) 94 12/09/17 08:00 86 12/09/17 07:23 97.5 87 23 103/73 (83) 95 12/09/17 07:00 94 Bi-Pap 12/09/17 06:01 80 12/09/17 06:01 80 17 112/76 (88) 96 12/09/17 05:01 82 18 125/60 (81) 92 12/09/17 04:01 97.8 98 28 138/96 (110) 96 12/09/17 04:01 98 12/09/17 03:54 97 90 12/09/17 03:01 98 27 111/59 (76) 98 12/09/17 02:00 94 12/09/17 02:00 94 24 109/65 (80) 98 12/09/17 01:50 97 90 12/09/17 01:00 86 20 135/77 (96) 98 12/09/17 00:15 97.9 12/09/17 00:00 72 12/09/17 00:00 72 24 96/82 (87) 92 12/08/17 23:00 80 12/08/17 23:00 93 Bi-Pap 70 12/08/17 23:00 80 23 110/62 (78) 93 12/08/17 22:15 95 70 12/08/17 22:10 91 Bi-Pap 70 12/08/17 22:02 92 27 133/68 (89) 91 12/08/17 22:02 92 12/08/17 21:00 90 40 134/93 (107) 93 12/08/17 20:08 93 Partial Rebreather 10.00 12/08/17 20:00 100 12/08/17 20:00 99.6 96 23 121/62 (81) 94 12/08/17 19:00 90 27 118/61 (80) 92 12/08/17 19:00 92 Partial Non-Rebreather 6.00 12/08/17 18:00 98 12/08/17 18:00 98 20 119/63 (81) 95 12/08/17 17:42 96 26 132/57 (82) 92 I/O 6/9/18 6/912/08/17 12/09/17 12/09/17 12/09/17 07:00 15:00 23:00 07:00 15:00 23:00 Intake Total 150 ml 1740 ml 290 ml 1331 ml 0 ml Output Total 2530 ml 2540 ml 3000 ml 1800 ml 0 ml Balance -2380 ml -800 ml -2710 ml -469 ml 0 ml Intake Oral 1740 ml 290 ml 1181 ml 0 ml IV Total 150 ml 150 ml Output Urine Total 2530 ml 2540 ml 3000 ml 1800 ml 0 ml # Voids 2 # Bowel Movements 1 Physical Exam GENERAL: NAD, AAOx3, currently on bipap SKIN: Warm and dry. HEAD: Atraumatic. Normocephalic. EYES: Pupils equal and round. No scleral icterus. No injection or drainage. ENT: No nasal bleeding or discharge. Mucous membranes pink and moist. NECK: Trachea midline. No JVD. CARDIOVASCULAR: Regular rate and rhythm. RESPIRATORY: No accessory muscle use. Minimal rales bilateral bases GASTROINTESTINAL: Abdomen soft, non-tender, nondistended. Hepatic and splenic margins not palpable. MUSCULOSKELETAL: Left BKA, right with trace edema NEUROLOGICAL: Awake and alert. No obvious cranial nerve deficits. Motor grossly within normal limits. Five out of 5 muscle strength in the arms and legs. Normal speech. PSYCHIATRIC: Appropriate mood and affect; insight and judgment normal. Laboratory Laboratory Tests Test 12/08/17 18:17 12/09/17 06:25 Phosphorus Level 3.4 MG/DL 3.8 MG/DL Troponin I 0.06 NG/ML Thyroid Stimulating Hormone 3rd Gen 0.580 uIU/ML White Blood Count 16.1 TH/MM3 Red Blood Count 5.10 MIL/MM3 Hemoglobin 15.5 GM/DL Hematocrit 45.9 % Mean Corpuscular Volume 90.1 FL Mean Corpuscular Hemoglobin 30.5 PG Mean Corpuscular Hemoglobin Concent 33.8 % Red Cell Distribution Width 13.4 % Platelet Count 252 TH/MM3 Mean Platelet Volume 11.2 FL Neutrophils (%) (Auto) 87.5 % Lymphocytes (%) (Auto) 6.9 % Monocytes (%) (Auto) 3.8 % Eosinophils (%) (Auto) 0.0 % Basophils (%) (Auto) 1.8 % Neutrophils # (Auto) 14.1 TH/MM3 Lymphocytes # (Auto) 1.1 TH/MM3 Monocytes # (Auto) 0.6 TH/MM3 Eosinophils # (Auto) 0.0 TH/MM3 Basophils # (Auto) 0.3 TH/MM3 CBC Comment DIFF FINAL Differential Comment Prothrombin Time 26.5 SEC Prothromb Time International Ratio 2.6 RATIO Activated Partial Thromboplast Time 33.0 SEC Blood Urea Nitrogen 30 MG/DL Creatinine 1.20 MG/DL Random Glucose 368 MG/DL Total Protein 7.4 GM/DL Albumin 3.3 GM/DL Calcium Level 9.0 MG/DL Magnesium Level 1.9 MG/DL Alkaline Phosphatase 7 U/L Aspartate Amino Transf (AST/SGOT) 16 U/L Alanine Aminotransferase (ALT/SGPT) 36 U/L Total Bilirubin 0.6 MG/DL Sodium Level 135 MEQ/L Potassium Level 4.0 MEQ/L Chloride Level 98 MEQ/L Carbon Dioxide Level 28.8 MEQ/L Anion Gap 8 MEQ/L Estimat Glomerular Filtration Rate 62 ML/MIN Lactic Acid Level 3.1 mmol/L Imaging Last 24 hours Impressions Chest X-Ray 12/09/17 0000 Signed Impressions: CONCLUSION: Heart is enlarged. Mild pulmonary vascular congestion has improved Assessment and Plan Problem List: (1) Acute decompensated heart failure ICD Codes: I50.9 - Heart failure, unspecified (2) Acute respiratory failure with hypoxia and hypercapnia ICD Codes: J96.01 - Acute respiratory failure with hypoxia; J96.02 - Acute respiratory failure with hypercapnia (3) History of automatic internal cardiac defibrillator (AICD) (4) Peripheral arterial disease ICD Codes: I73.9 - Peripheral vascular disease, unspecified (5) Chronic systolic heart failure ICD Codes: I50.22 - Chronic systolic (congestive) heart failure (6) Hyperlipidemia ICD Codes: E78.5 - Hyperlipidemia, unspecified (7) Essential hypertension ICD Codes: I10 - Essential (primary) hypertension (8) COPD (chronic obstructive pulmonary disease) ICD Codes: J44.9 - Chronic obstructive pulmonary disease, unspecified (9) Acute pulmonary edema ICD Codes: J81.0 - Acute pulmonary edema Status: Acute (10) Respiratory distress ICD Codes: R06.03 - Acute respiratory distress Status: Acute (11) Elevated troponin ICD Codes: R74.8 - Abnormal levels of other serum enzymes Assessment and Plan 1) SOB Multifactorial 2) Acute decompensated systolic heart failure Due to non-compliance with diuretic as he was taking care of his parents Con't with diuresis Diet changed to regular, so will decrease his liquid intake 3) Ischemic cardiomyopathy EF 30-35%, with inferior wall akinesis/thin consistent with previous scar Con't Coreg/Lisinopril 4) Coumadin for his chronic hypercoagulable state 5) Tobacco cessation Discussed for greater than 3 minutes 6) Minimally elevated troponin Most likely type 2 in nature due to overall fluid overload status/acute CHF No chest pain No further work up Problem Qualifiers (1) Hyperlipidemia: Qualified Codes: E78.5 - Hyperlipidemia, unspecified (2) COPD (chronic obstructive pulmonary disease): Qualified Codes: J44.1 - Chronic obstructive pulmonary disease with (acute) exacerbation Jaspreet Gibbons DO Dec 09, 2017 17:17
--- NOTE | 2017-12-09 19:30 | HHI.CCPN ---
Subjective Remarks/Hospital Course This is a 57-year-old male. Date of admission 12/08/2017. Past medical history includes elevated BMI, chronic systolic heart failure, history of ASD, chronic anticoagulation with warfarin, hypertension/essential, hyperlipidemia, COPD with ongoing tobaccoism, diabetes mellitus with neuropathy , coronary disease with history of myocardial infarction and peripheral arterial disease history of a left lower extremity amputation. Patient presents to [facility] with history of "shortness of breath" since reported per patient November 24. At that time he seen by his physician as an outpatient receiving oral antibiotic was treated for 10 days. He has been taking care of his parents and is not been taking his diuretics were his medications as scheduled at home. This morning, patient awoke acutely short of breath associated diaphoresis At this facility. Chest x-ray revealed bilateral pulmonary infiltrates infectious versus coronary edema. Troponin was 0.04. EKG shows some ST depression V1 and V2 however resolved on second chest x-ray after receiving Nitropaste and 100 mg IV furosemide. No Escobar placed the patient states he is "urinate" 2 times. He appears more comfortable according to staff. Respiratory rate is currently 25 and appears comfortable. FiO2 still at 100%. Subjective: 12/09: Overnight the patient's FiO2 was weaned down to 60%. Patient was noted to have worsening lactic acidemia, as well as leukocytosis possibly reactive. Blood cultures 2 urine cultures to be obtained. Patient initially placed on azithromycin ID has been consulted cefepime has been added to broaden coverage. The patient was placed on clear liquid diet, separation for possible emergent intubation. However the patient also was consuming large amounts of water and sodas. FiO2 requirements have been decreased now currently to 60% with an O2 saturation of 96%. Clear liquid diet has been discontinued the patient has been placed on 1800-calorie carb conscious diet. Nursing staff has been educated to limit fluid intake. The patient continues on diuretics twice daily. The patient's blood glucose levels noted to be continually added elevated Levemir has been increased to 15 units twice daily in conjunction with high dose sliding scale insulin. Objective Vital Signs Date Time Temp Pulse Resp B/P (MAP) Pulse Ox O2 Delivery O2 Flow Rate FiO2 12/09/17 18:32 96 50 12/09/17 18:07 68 12/09/17 18:01 22 145/81 (102) 12/09/17 16:44 97.8 12/09/17 09:33 Venturi Mask 6.00 Intake and Output 12/09/17 12/09/17 12/10/17 08:00 16:00 00:00 Intake Total 290 ml 1331 ml 437 ml Output Total 3300 ml 1500 ml 425 ml Balance -3010 ml -169 ml 12 ml Result Diagram: 12/09/17 0625 12/09/17 0625 Imaging Last Impressions Chest X-Ray 12/09/17 0000 Signed Impressions: CONCLUSION: Heart is enlarged. Mild pulmonary vascular congestion has improved Lower Extremity Ultrasound 12/08/17 0000 Signed Impressions: CONCLUSION: 1. The study is negative for lower extremity deep venous thrombosis. Last Impressions Chest X-Ray 12/08/17 0649 Signed Impressions: CONCLUSION: Bilateral pulmonary airspace disease and interstitial prominence. Pneumonia or alternatively congestive heart failure may have this appearance. Objective Remarks GENERAL: 57-year-old male currently sitting up on the side of the bed with BiPAP SKIN: Warm and dry. Chronic venous stasis right lower extremity. HEAD: Atraumatic. Normocephalic. EYES: Pupils equal and round about 3 mm bilaterally and reactive to 2. No scleral icterus. No injection or drainage. ENT: No nasal bleeding or discharge. Mucous membranes pink and moist. NECK: Trachea midline. Unable to define JVD secondary to body habitus CARDIOVASCULAR: Tachycardic/paced. S1, S2. No S4. Without murmur RESPIRATORY: Mild accessory muscle use. Diminished anteriorly. Positive end expiratory wheeze GASTROINTESTINAL: Abdomen soft, non-tender, nondistended. Hepatic and splenic margins not palpable. MUSCULOSKELETAL: Extremities DVTs in the left lower extremity above the knee. Right lower extremity chronic venous stasis and 1+ pitting edema below the knee. NEUROLOGICAL: Awake and alert. No obvious cranial nerve deficits. Motor grossly within normal limits. Five out of 5 muscle strength in the arms and legs. Normal speech. Diminished sensation light touch pinprick bilateral lower extremities PSYCHIATRIC: Appropriate mood and affect; insight and judgment normal. A/P Assessment and Plan Neuro/Psych: Diabetes mellitus neuropathy Acetaminophen 650 mg every 6 hours as needed fever Hydrocodone/acetaminophen 5/325 1 tab every 4 hours as needed pain 1 through 5 Morphine sulfate 2 mg IV every 2 hours as needed pain 6-10 CV: Chronic systolic heart failure Essential hypertension Hyperlipidemia Status post AICD/pacemaker Peripheral arterial disease status post left lower extremity amputation Resume home medications of carvedilol 6.25 mg twice daily and lisinopril 10 mg daily for hypertension Continue pravastatin 40 mg by mouth daily for dyslipidemia Continue aspirin 81 mg by mouth daily EKG revealed paced rhythm. Modifiable ST depression V1 and V2. Initial troponin 0.04. Will trend downward Routine 2D echocardiogram ordered 2011 echo revealed EF 35%. Inferior posterior hypokinesis. LV dilated. Resp: Acute hypoxic hypercapnic respiratory failure COPD Currently on BiPAP 16/02 now FIO2 decreased to 60% Currently on albuterol/ipratropium aerosols every 6 hours W aerosols every 2 hours needed dyspnea On albuterol/ipratropium nebs at home Methylprednisolone 40 mg IV twice daily/budesonide 0.5/2 1 inhalation twice daily Chest x-ray revealed bilateral lower lobe pulmonary edema/infiltrates. Received 100 mg furosemide in ED. scheduled twice daily 40 mg BID 12/09 chest x-ray pulmonary vascular congestion GI: Advance diet as tolerated ADA 1800 Famotidine for GI prophylaxis Docusate sodium/senna 1 tablet twice daily for bowel regimen Follow-up on hepatic profile : Escobar catheter if indicated for accurate I's and O's in a critically ill patient Endo: Diabetes mellitus with neuropathy SSI with Novulin R with Accu-Cheks before meals/at bedtim Levemir increased to 15 units twice daily Renal: Creatinine currently within normal limits Monitor urine output Accurate I's and O's Heme: Chronic warfarin use secondary to hypercoagulable state question sallie Coumadin continued pharmacy consult for management Normocytic anemia Coags currently pending Monitor CBC daily. Follow trends ID: Blood cultures 2, sputum and influenza all ordered Empiric antibiotics with levofloxacin 750 mg IV daily, add cefepime ID consulted MSK: BMI 46.1 Weight loss encouraged PT evaluate and treat FEN: Replace electrolytes as clinically indicated per ICU electrolyte protocol Access -Utilize peripheral IV. Central line if indicated Prophylaxis -GI -famotidine -DVT -SCD/patient is currently on warfarin to provide pharmacological prophylaxis Level 3 follow-up Physician Amaris Elias MD Dec 09, 2017 19:30
[2017-12-09] MEDS: NYSTATIN 100,000 U/GM PWD 15 GM BTL TOPICAL SCH (21:00)
[2017-12-09] MEDS: INSULIN DETEMIR 100 UNITS/ML VIAL SQ SCH (21:25)
[2017-12-09] MEDS: PRAVASTATIN SOD 40 MG TAB PO SCH (21:25)
[2017-12-09] MEDS: CEFEPIME INJ 1,000 MG in SODIUM CHLORIDE 0.9% INJ 100 ML IV SCH (21:36)
[2017-12-10] VITALS (43 sets, daily range): BP systolic 87–154; BP diastolic 52–71; PULSE 60–100; RESP 13–32; TEMP 96.7–98.8; O2SAT 87–98
[2017-12-10] MEDS: CHLORHEXIDINE GLUCONATE 2 % 1 PACK (2 CLOTHS)(taper/protocol) TOPICAL SCH (00:59)
[2017-12-10] MEDS: RESP: ALBUTEROL 2.5 MG/IPRATROPIUM 0.5 MG NEB (SCH) INH ×4 (03:30→21:00)
[2017-12-10] MEDS: CEFEPIME INJ 1,000 MG in SODIUM CHLORIDE 0.9% INJ 100 ML IV SCH ×3 (04:48→20:19)
[2017-12-10 05:15] LABS: AUTOMATED NEUTROPHIL # 14.6 TH/MM3 (1.8-7.7); BASOPHIL # 0.1 TH/MM3 (0-0.2); BASOPHIL % 0.9 % (0.0-2.0); EOSINOPHIL % 0.1 % (0.0-4.0); HEMATOCRIT 41.7 % (39.0-51.0); HEMOGLOBIN 13.7 GM/DL (13.0-17.0); LYMPH % 6.4 % (9.0-44.0); MEAN CELL VOLUME 91.7 FL (80.0-100.0); MEAN CORPUSCULAR HEMOGLOBIN 30.2 PG (27.0-34.0); MEAN CORPUSCULAR HGB CONC 32.9 % (32.0-36.0); MEAN PLATELET VOLUME 10.4 FL (7.0-11.0); MONO % 3.6 % (0.0-8.0); MONOCYTE # 0.6 TH/MM3 (0-0.9); PLATELET COUNT 210 TH/MM3 (150-450); RED BLOOD COUNT 4.55 MIL/MM3 (4.50-5.90); WHITE BLOOD COUNT 16.3 TH/MM3 (4.0-11.0)
[2017-12-10 05:23] LABS: INTERNATIONAL NORMALIZED RATIO 2.9 RATIO; PROTHROMBIN TIME - PATIENT 29.1 SEC (9.8-11.6)
[2017-12-10 05:26] LABS: CALCIUM 8.7 MG/DL (8.5-10.1)
[2017-12-10 05:30] LABS: BICARBONATE 31.3 MEQ/L (21.0-32.0); CREATININE 0.99 MG/DL (0.60-1.30)
--- NOTE | 2017-12-10 06:10 | RADRPT ---
EXAM DATE: 12/10/2017 5:59 AM EDT AGE/SEX: 57 years / Male INDICATIONS: Shortness of breath. CLINICAL DATA: This is the patient's subsequent encounter. Patient reports that signs and symptoms h ave been present for 3 days and indicates a pain score of Nonresponsive. MEDICAL/SURGICAL HISTORY: Hypertension. Chronic obstructive pulmonary disease. Congestive hea rt failure. Pacemaker. COMPARISON: [facility], CHEST SINGLE AP, 12/09/2017. . FINDINGS: Single AP view of the chest. AICD is in place. Moderate cardiac silhouette enlargement is again seen. Decrease in bilateral lower lung zone opacity. No evidence of pleural effusion or pneumothorax. CONCLUSION: Persistent cardiac silhouette enlargement. Minimal residual bilateral lower lung zone opacity likely representing atelectasis. Electronically signed by: Max Groves MD 12/10/2017 6:08 AM EDT
[2017-12-10] MEDS: RESP: BUDESONIDE 0.5 MG/2 ML NEB NEB SCH ×2 (07:36→19:23)
[2017-12-10] MEDS: ARTIFICIAL TEARS OPTH SOLN 15 ML BTL EACH EYE SCH ×3 (09:00→17:14)
[2017-12-10] MEDS: DOCUSATE SODIUM 50 MG/SENNA 8.6 MG TAB PO SCH ×2 (09:00→20:21)
[2017-12-10] MEDS: INSULIN DETEMIR 100 UNITS/ML VIAL SQ SCH (09:42)
[2017-12-10] MEDS: INSULIN ASPART SUPPLEMENTAL SCALE SQ SCH ×4 (09:47→20:21)
[2017-12-10] MEDS: SODIUM CHLORIDE 0.9% FLUSH 10 ML FLUSH IV FLUSH SCH ×2 (09:48→20:20)
[2017-12-10] MEDS: FAMOTIDINE 20 MG/2 ML VIAL IV PUSH SCH ×2 (09:49→20:20)
[2017-12-10] MEDS: FUROSEMIDE 40 MG/4 ML VIAL IV PUSH SCH (09:49)
[2017-12-10] MEDS: methylPREDNISolone SOD SUCC 40 MG/1 ML VIAL IV PUSH SCH ×2 (09:50→20:20)
[2017-12-10] MEDS: NYSTATIN 100,000 U/GM PWD 15 GM BTL TOPICAL SCH ×2 (09:51→20:26)
[2017-12-10] MEDS: LEVOFLOXACIN 750 MG PREMIX INJ 150 ML IV SCH (09:53)
[2017-12-10] MEDS: LISINOPRIL 10 MG TAB PO SCH (09:53)
[2017-12-10] MEDS: ASPIRIN EC 81 MG TABEC PO SCH (09:53)
[2017-12-10] MEDS: CARVEDILOL 6.25 MG TAB PO SCH ×2 (09:53→20:20)
--- NOTE | 2017-12-10 12:21 | PD.CARD.PN ---
Subjective Subjective Remarks Pt reports coughing up brown sputum Objective Medications Current Medications Medications (Trade) Dose Ordered Sig/Chris Route Start Time Stop Time Status Last Admin (NS Flush) 2 ml UNSCH PRN IV FLUSH 12/08/17 08:30 (NS Flush) 2 ml BID IV FLUSH 12/08/17 09:00 12/10/17 09:48 (Tylenol) 650 mg Q6H PRN PO 12/08/17 08:30 ([place] 5-325 Mg) 1 tab Q4H PRN PO 12/08/17 08:30 (Morphine Inj) 2 mg Q2H PRN IV PUSH 12/08/17 08:30 (Pepcid Inj) 20 mg Q12HR IV PUSH 12/08/17 09:00 12/10/17 09:49 (Tears Naturale Opth Soln) 1 drop TID EACH EYE 12/08/17 09:00 12/09/17 17:37 (Zofran Inj) 4 mg Q6H PRN IV PUSH 12/08/17 08:30 (Duoneb Neb) 1 ampule Q6HR NEB INH 12/08/17 10:00 12/10/17 09:58 (Albuterol Neb) 2.5 mg Q2HR NEB PRN INH 12/08/17 08:30 (Iesha-Colace) 1 tab BID PO 12/08/17 09:00 12/09/17 21:25 (Milk Of Magnesia Liq) 30 ml Q12H PRN PO 12/08/17 08:30 (Senokot) 17.2 mg Q12H PRN PO 12/08/17 08:30 (Dulcolax Supp) 10 mg DAILY PRN RECTAL 12/08/17 08:30 (Lactulose Liq) 30 ml DAILY PRN PO 12/08/17 08:30 (Ecotrin Ec) 81 mg DAILY PO 12/09/17 09:00 12/10/17 09:53 (Coreg) 6.25 mg BID PO 12/08/17 21:00 12/10/17 09:53 (Prinivil) 10 mg DAILY PO 12/09/17 09:00 12/10/17 09:53 (Pravachol) 40 mg HS PO 12/08/17 21:00 12/09/17 21:25 ([facility] [place] Patient in [place] care unit? Ass... Q361D .XX 12/08/17 09:15 (Chlorhexidine 2% Cloth) 3 pack DAILY@04 TOPICAL 12/09/17 04:00 12/13/17 04:01 12/10/17 00:59 (Chlorhexidine 2% Cloth) 3 pack UNSCH PRN TOPICAL 12/08/17 09:15 12/13/17 09:07 (D50w (Vial) Inj) 50 ml UNSCH PRN IV PUSH 12/08/17 09:15 (Glucagon Inj) 1 mg UNSCH PRN OTHER 12/08/17 09:15 (NovoLOG SUPPLEMENTAL SCALE) 1 ACHS SLIDING SCALE SQ 12/08/17 12:00 12/10/17 09:47 (SoluMEDROL INJ) 40 mg Q12HR IV PUSH 12/08/17 09:15 12/10/17 09:50 (Lasix Inj) 40 mg BID@ IV PUSH 12/08/17 18:00 12/10/17 09:49 Potassium Chloride 100 ml @ 50 mls/hr Q2H PRN IV 12/08/17 09:45 Potassium Chloride 100 ml @ 50 mls/hr Q2H PRN IV 12/08/17 09:45 (K-Lyte Cl Eff) 50 meq UNSCH PRN PO 12/08/17 09:45 Potassium Chloride 100 ml @ 25 mls/hr UNSCH PRN IV 12/08/17 09:45 Potassium Chloride 100 ml @ 50 mls/hr Q2H PRN IV 12/08/17 09:45 Magnesium Sulfate 4 gm/Sodium Chloride 100 ml @ 50 mls/hr UNSCH PRN IV 12/08/17 09:45 (Mag-Ox) 800 mg UNSCH PRN PO 12/08/17 09:45 Magnesium Sulfate 2 gm/Sodium Chloride 100 ml @ 50 mls/hr UNSCH PRN IV 12/08/17 09:45 (K-Phos) 2,000 mg Q4H PRN PO 12/08/17 09:45 Sodium Phosphate 30 mmol/Sodium Chloride 250 ml @ 42 mls/hr UNSCH PRN IV 12/08/17 09:45 (K-Phos) 2,000 mg UNSCH PRN PO/TUBE 12/08/17 09:45 Potassium Phosphate 30 mmol/ Sodium Chloride 260 ml @ 42 mls/hr UNSCH PRN IV 12/08/17 09:45 Levofloxacin/ Dextrose 150 ml @ 100 mls/hr Q24H IV 12/08/17 10:00 12/10/17 09:53 (Pulmicort Respule Neb) 0.5 mg Q12HR NEB NEB 12/08/17 20:00 12/10/17 07:36 Pharmacy Profile Note ml @ 0 mls/hr UNSCH OTHER 12/09/17 16:15 (Coumadin) 2 mg DAILY@1600 PO 12/09/17 17:00 12/09/17 16:37 (Mycostatin Powder) 1 applic BID TOPICAL 12/09/17 21:00 12/10/17 09:51 (Levemir Inj) 15 units Q12HR SQ 12/09/17 21:00 12/10/17 09:42 Cefepime HCl 1000 mg/Sodium Chloride 100 ml @ 200 mls/hr Q8H IV 12/09/17 20:00 12/10/17 04:48 Vital Signs / I&O Vital Signs Date Time Temp Pulse Resp B/P (MAP) Pulse Ox O2 Delivery O2 Flow Rate FiO2 12/10/17 11:00 92 12/10/17 11:00 86 19 103/62 (76) 95 12/10/17 10:02 100 20 90/60 (70) 95 12/10/17 10:00 86 12/10/17 09:01 80 15 104/62 (76) 94 12/10/17 09:00 80 12/10/17 08:01 98.7 66 13 87/61 (70) 95 12/10/17 08:00 62 12/10/17 07:40 96 40 12/10/17 07:01 88 18 106/70 (82) 97 12/10/17 07:00 97 Bi-Pap 40 12/10/17 06:29 90 12/10/17 06:21 68 15 102/67 (79) 97 12/10/17 05:27 86 22 100/66 (77) 93 12/10/17 04:35 82 12/10/17 04:01 98.8 74 23 120/65 (83) 92 12/10/17 04:00 94 50 12/10/17 03:01 72 18 104/61 (75) 95 12/10/17 02:13 80 12/10/17 02:01 66 17 96/62 (73) 93 12/10/17 01:10 96 50 12/10/17 01:01 68 18 109/69 (82) 93 12/10/17 00:01 98.0 84 22 117/68 (84) 98 12/10/17 00:00 86 12/09/17 23:01 66 18 115/63 (80) 97 12/09/17 22:10 95 50 12/09/17 22:03 72 12/09/17 22:01 76 19 101/58 (72) 95 12/09/17 21:01 98.4 72 23 119/74 (89) 96 12/09/17 20:01 88 24 140/80 (100) 99 12/09/17 20:00 80 12/09/17 19:42 96 50 12/09/17 19:25 98 Bi-Pap 50 12/09/17 19:01 82 19 134/90 (105) 98 12/09/17 18:32 96 50 12/09/17 18:07 68 12/09/17 18:01 88 22 145/81 (102) 96 12/09/17 17:01 68 21 132/70 (90) 93 12/09/17 17:01 68 21 93 12/09/17 16:44 97.8 12/09/17 16:33 70 20 97 12/09/17 16:23 68 12/09/17 16:18 68 16 98 12/09/17 16:18 74 21 134/69 (90) 71 12/09/17 15:57 97 55 12/09/17 15:01 80 18 140/74 (96) 95 12/09/17 14:18 79 12/09/17 14:09 88 17 123/73 (90) 93 12/09/17 13:01 84 23 132/74 (93) 95 12/09/17 12:28 91 I/O 12/09/17 12/09/17 12/09/17 12/10/17 12/10/17 12/10/17 07:00 15:00 23:00 07:00 15:00 23:00 Intake Total 290 ml 1331 ml 537 ml 250 ml 100 ml Output Total 3000 ml 1800 ml 1225 ml 600 ml 375 ml Balance -2710 ml -469 ml -688 ml -350 ml -275 ml Intake Oral 290 ml 1181 ml 437 ml 250 ml 100 ml IV Total 150 ml 100 ml Output Urine Total 3000 ml 1800 ml 1225 ml 600 ml 375 ml # Bowel Movements 1 Physical Exam GENERAL: Well developed, well nourished. No acute distress. HEENT: Jugular venous pressure is normal. CHEST: Lungs decreased clear to auscultation bilaterally. Unlabored respiratory effort. CARDIAC: Regular rate and rhythm without S3, S4, or murmur. ABDOMEN: Soft, nontender, no hepatosplenomegaly. Bowel sounds present. EXTREMITIES: No clubbing, cyanosis, or edema. Laboratory Laboratory Tests Test 12/09/17 19:40 12/10/17 04:55 Procalcitonin 0.38 ng/mL White Blood Count 16.3 TH/MM3 Red Blood Count 4.55 MIL/MM3 Hemoglobin 13.7 GM/DL Hematocrit 41.7 % Mean Corpuscular Volume 91.7 FL Mean Corpuscular Hemoglobin 30.2 PG Mean Corpuscular Hemoglobin Concent 32.9 % Red Cell Distribution Width 13.0 % Platelet Count 210 TH/MM3 Mean Platelet Volume 10.4 FL Neutrophils (%) (Auto) 89.0 % Lymphocytes (%) (Auto) 6.4 % Monocytes (%) (Auto) 3.6 % Eosinophils (%) (Auto) 0.1 % Basophils (%) (Auto) 0.9 % Neutrophils # (Auto) 14.6 TH/MM3 Lymphocytes # (Auto) 1.0 TH/MM3 Monocytes # (Auto) 0.6 TH/MM3 Eosinophils # (Auto) 0.0 TH/MM3 Basophils # (Auto) 0.1 TH/MM3 CBC Comment DIFF FINAL Differential Comment Prothrombin Time 29.1 SEC Prothromb Time International Ratio 2.9 RATIO Blood Urea Nitrogen 33 MG/DL Creatinine 0.99 MG/DL Random Glucose 277 MG/DL Calcium Level 8.7 MG/DL Phosphorus Level 4.0 MG/DL Magnesium Level 2.0 MG/DL Sodium Level 137 MEQ/L Potassium Level 4.2 MEQ/L Chloride Level 100 MEQ/L Carbon Dioxide Level 31.3 MEQ/L Anion Gap 6 MEQ/L Estimat Glomerular Filtration Rate 77 ML/MIN Lactic Acid Level 1.5 mmol/L Imaging Last 24 hours Impressions Chest X-Ray 12/10/17 0600 Signed Impressions: CONCLUSION: Persistent cardiac silhouette enlargement. Minimal residual bilateral lower juliette g zone opacity likely representing atelectasis. Assessment and Plan Problem List: (1) Acute decompensated heart failure ICD Codes: I50.9 - Heart failure, unspecified Plan: EF 30-35%, that is up for him, no edema on exam -change to PO - fluid and sodium restrict (2) Acute respiratory failure with hypoxia and hypercapnia ICD Codes: J96.01 - Acute respiratory failure with hypoxia; J96.02 - Acute respiratory failure with hypercapnia Plan: predominantly respiratory (3) History of automatic internal cardiac defibrillator (AICD) (4) Peripheral arterial disease ICD Codes: I73.9 - Peripheral vascular disease, unspecified (5) Chronic systolic heart failure ICD Codes: I50.22 - Chronic systolic (congestive) heart failure (6) Hyperlipidemia ICD Codes: E78.5 - Hyperlipidemia, unspecified (7) Essential hypertension ICD Codes: I10 - Essential (primary) hypertension (8) COPD (chronic obstructive pulmonary disease) ICD Codes: J44.9 - Chronic obstructive pulmonary disease, unspecified (9) Acute pulmonary edema ICD Codes: J81.0 - Acute pulmonary edema Status: Acute (10) Respiratory distress ICD Codes: R06.03 - Acute respiratory distress Status: Acute (11) Elevated troponin ICD Codes: R74.8 - Abnormal levels of other serum enzymes Problem Qualifiers (1) Hyperlipidemia: Qualified Codes: E78.5 - Hyperlipidemia, unspecified (2) COPD (chronic obstructive pulmonary disease): Qualified Codes: J44.1 - Chronic obstructive pulmonary disease with (acute) exacerbation Sera Vincent MD Dec 10, 2017 12:21
[2017-12-10] MEDS: WARFARIN SOD 2 MG TAB PO SCH (17:14)
[2017-12-10] MEDS: FUROSEMIDE 40 MG TAB PO SCH (17:14)
[2017-12-10] MEDS ORDERED: BENZONATATE 100 MG CAP PO PRN (17:45)
--- NOTE | 2017-12-10 17:51 | HHI.CCPN ---
Subjective Remarks/Hospital Course This is a 57-year-old male. Date of admission 12/08/2017. Past medical history includes elevated BMI, chronic systolic heart failure, history of ASD, chronic anticoagulation with warfarin, hypertension/essential, hyperlipidemia, COPD with ongoing tobaccoism, diabetes mellitus with neuropathy , coronary disease with history of myocardial infarction and peripheral arterial disease history of a left lower extremity amputation. Patient presents to [facility] with history of "shortness of breath" since reported per patient November 24. At that time he seen by his physician as an outpatient receiving oral antibiotic was treated for 10 days. He has been taking care of his parents and is not been taking his diuretics were his medications as scheduled at home. This morning, patient awoke acutely short of breath associated diaphoresis At this facility. Chest x-ray revealed bilateral pulmonary infiltrates infectious versus coronary edema. Troponin was 0.04. EKG shows some ST depression V1 and V2 however resolved on second chest x-ray after receiving Nitropaste and 100 mg IV furosemide. No Escobar placed the patient states he is "urinate" 2 times. He appears more comfortable according to staff. Respiratory rate is currently 25 and appears comfortable. FiO2 still at 100%. Subjective: 12/09: Overnight the patient's FiO2 was weaned down to 60%. Patient was noted to have worsening lactic acidemia, as well as leukocytosis possibly reactive. Blood cultures 2 urine cultures to be obtained. Patient initially placed on azithromycin ID has been consulted cefepime has been added to broaden coverage. The patient was placed on clear liquid diet, separation for possible emergent intubation. However the patient also was consuming large amounts of water and sodas. FiO2 requirements have been decreased now currently to 60% with an O2 saturation of 96%. Clear liquid diet has been discontinued the patient has been placed on 1800-calorie carb conscious diet. Nursing staff has been educated to limit fluid intake. The patient continues on diuretics twice daily. The patient's blood glucose levels noted to be continually added elevated Levemir has been increased to 15 units twice daily in conjunction with high dose sliding scale insulin. 12/10: No acute issues overnight. The patient's FiO2 has been weaned down to 40 % CPAP during the night and 5-6 L nasal cannula during the day chest x-ray is much improved. The patient continues on fluid restriction. Today the patient complains of intermittent coughing, Tessalon Perles added to medication regimen. Pulmonology has been consulted . The patient continues to have elevation in glucose most likely secondary to methylprednisolone, Levemir dosing increased. Continue glucose monitoring. Objective Vital Signs Date Time Temp Pulse Resp B/P (MAP) Pulse Ox O2 Delivery O2 Flow Rate FiO2 12/10/17 16:00 68 12/10/17 14:04 26 154/56 (88) 91 12/10/17 08:01 98.7 12/10/17 07:40 40 12/10/17 07:00 Bi-Pap 12/09/17 09:33 6.00 Intake and Output 12/10/17 12/10/17 12/11/17 08:00 16:00 00:00 Intake Total 250 ml 600 ml Output Total 600 ml 975 ml Balance -350 ml -375 ml Result Diagram: 12/10/17 0455 12/10/17 0455 Other Results Microbiology Date/Time Source Procedure Growth Status 12/10/17 05:30 Nasal Washing Influenza Types A,B Antigen (MALKA) - Final NEGATIVE FOR FLU A AND B ANTIGEN.... Complete 12/09/17 23:10 Urine Catheterized Urine - Final Complete 12/09/17 23:10 Urine Clean Catch Streptococcus pneumoniae Antigen (M - Final PRESUMPTIVE NEGATIVE FOR STREPTOCOCCU... Complete Imaging Last Impressions Chest X-Ray 12/10/17 0600 Signed Impressions: CONCLUSION: Persistent cardiac silhouette enlargement. Minimal residual bilateral lower juliette g zone opacity likely representing atelectasis. Lower Extremity Ultrasound 12/08/17 0000 Signed Impressions: CONCLUSION: 1. The study is negative for lower extremity deep venous thrombosis. Last Impressions Chest X-Ray 12/09/17 0000 Signed Impressions: CONCLUSION: Heart is enlarged. Mild pulmonary vascular congestion has improved Lower Extremity Ultrasound 12/08/17 0000 Signed Impressions: CONCLUSION: 1. The study is negative for lower extremity deep venous thrombosis. Last Impressions Chest X-Ray 12/08/17 0649 Signed Impressions: CONCLUSION: Bilateral pulmonary airspace disease and interstitial prominence. Pneumonia or alternatively congestive heart failure may have this appearance. Objective Remarks GENERAL: This is a morbidly obese 57-year-old male currently sitting up on the side of the bed consuming dinner SKIN: Warm and dry. Chronic venous stasis right lower extremity. HEAD: Atraumatic. Normocephalic. EYES: Pupils equal and round about 3 mm bilaterally and reactive to 2. No scleral icterus. No injection or drainage. ENT: No nasal bleeding or discharge. Mucous membranes pink and moist. NECK: Trachea midline. Unable to define JVD secondary to body habitus CARDIOVASCULAR: Tachycardic/paced. S1, S2. No S4. Without murmur RESPIRATORY: Mild accessory muscle use. Diminished anteriorly. Positive end expiratory wheeze GASTROINTESTINAL: Abdomen soft, non-tender, nondistended. Hepatic and splenic margins not palpable. MUSCULOSKELETAL: Extremities DVTs in the left lower extremity above the knee. Right lower extremity chronic venous stasis and 1+ pitting edema below the knee. NEUROLOGICAL: Awake and alert. No obvious cranial nerve deficits. Motor grossly within normal limits. Five out of 5 muscle strength in the arms and legs. Normal speech. Diminished sensation light touch pinprick bilateral lower extremities PSYCHIATRIC: Appropriate mood and affect; insight and judgment normal. A/P Assessment and Plan Neuro/Psych: Diabetes mellitus neuropathy Acetaminophen 650 mg every 6 hours as needed fever Hydrocodone/acetaminophen 5/325 1 tab every 4 hours as needed pain 1 through 5 Morphine sulfate 2 mg IV every 2 hours as needed pain 6-10 CV: Chronic systolic heart failure Essential hypertension Hyperlipidemia Status post AICD/pacemaker Peripheral arterial disease status post left lower extremity amputation Resume home medications of carvedilol 6.25 mg twice daily and lisinopril 10 mg daily for hypertension Continue pravastatin 40 mg by mouth daily for dyslipidemia Continue aspirin 81 mg by mouth daily Fluid restriction implemented 1500 cc/day EKG revealed paced rhythm. Modifiable ST depression V1 and V2. Initial troponin 0.04. Will trend downward Routine 2D echocardiogram ordered 2011 echo revealed EF 35%. Inferior posterior hypokinesis. LV dilated. Resp: Acute hypoxic hypercapnic respiratory failure COPD SHERRY OHS Currently on BiPAP 16/02 now FIO2 decreased to 40%, 6 L nasal cannula Currently on albuterol/ipratropium aerosols every 6 hours W aerosols every 2 hours needed dyspnea On albuterol/ipratropium nebs at home Methylprednisolone 40 mg IV twice daily/budesonide 0.5/2 1 inhalation twice daily Received 100 mg furosemide in ED. scheduled twice daily 40 mg BID 12/10: Chest x-ray improved Ashok Valentin for cough TID GI: Advance diet as tolerated ADA 1800 Famotidine for GI prophylaxis Docusate sodium/senna 1 tablet twice daily for bowel regimen Follow-up on hepatic profile : Escobar catheter if indicated for accurate I's and O's in a critically ill patient Endo: Diabetes mellitus with neuropathy SSI with Novulin R with Accu-Cheks before meals/at bedtim Levemir increased to 20 units twice daily Renal: Creatinine currently within normal limits Monitor urine output Accurate I's and O's Heme: Chronic warfarin use secondary to hypercoagulable state Coumadin continued pharmacy consult for management Normocytic anemia Monitor CBC daily. Follow trends ID: Blood cultures 2, sputum and influenza -NGTD Empiric antibiotics with levofloxacin 750 mg IV daily, cefepime ID consulted MSK: BMI 46.1 Weight loss encouraged PT evaluate and treat FEN: Replace electrolytes as clinically indicated per ICU electrolyte protocol Access -Utilize peripheral IV. Central line if indicated Prophylaxis -GI -famotidine -DVT -SCD/patient is currently on warfarin to provide pharmacological prophylaxis Level 2 follow-up. Plan transfer to [facility] in the . Physician Amaris Elias MD Dec 10, 2017 17:51
[2017-12-10] MEDS: POTASSIUM CHLORIDE 20 MEQ CONTROLLED RELEASE TAB PO SCH (20:24)
[2017-12-10] MEDS: PRAVASTATIN SOD 40 MG TAB PO SCH (20:24)
[2017-12-10] MEDS ORDERED: INSULIN DETEMIR 100 UNITS/ML VIAL SQ SCH (21:00)
--- NOTE | 2017-12-10 23:39 | PD.ID.CON ---
History of Present Illness Consult Requested By Primary Care Physician Julien Bird MD Diagnoses: History of Present Illness This is a [id number] with multiple med problems admitted on 12/08/2017. with SOB, cough (initially dry, later productive), fever Took abx @ [facility] and failed CXR with b/l opacities Bl clx NGTD Sputm P Legionella result sent to reference lab zon lrvsquin, cefepime - fills better HIs medical history includes elevated BMI, chronic systolic heart failure, history of ASD, chronic anticoagulation with warfarin, hypertension/essential, hyperlipidemia, COPD with ongoing tobaccoism, diabetes mellitus with neuropathy , coronary disease with history of myocardial infarction and peripheral arterial disease history of a left lower extremity amputation. Patient presents to [facility] with history of "shortness of breath" since reported per patient November 24. At that time he seen by his physician as an outpatient receiving oral antibiotic was treated for 10 days. He has been taking care of his parents and is not been taking his diuretics were his medications as scheduled at home. This morning, patient awoke acutely short of breath associated diaphoresis Review of Systems Except as stated in HPI: all other systems reviewed are Neg Past Family Social History Allergies: Coded Allergies: No Known Allergies (Unverified , 12/08/17) Past Medical History Elevated BMI COPD with ongoing tobaccoism Essential hypertension Hyperlipidemia Chronic systolic heart failure Peripheral arterial disease status post amputation of the left lower extremity Diabetes mellitus with peripheral neuropathy History of hypercoagulable state PAD Chronic warfarin use Past Surgical History AICD/defibrillator Hernia repair Left lower extremity amputation with history of thrombectomy and femoropopliteal bypass Right lower extremity femorofemoral bypass with graft removal Active Ordered Medications Medications where reviewed in EMR Antibiotics Include: levaquin cefepime Family History Positive for coronary disease and peripheral vascular disease Social History 1 pack per day tobacco 40 years. Positive occasional THC use. Denies alcohol use. Physical Exam Vital Signs Vital Signs Date Time Temp Pulse Resp B/P (MAP) Pulse Ox O2 Delivery O2 Flow Rate FiO2 12/10/17 22:05 93 40 12/10/17 21:56 80 24 103/58 (73) 91 12/10/17 20:57 74 16 109/65 (80) 96 12/10/17 20:00 92 Nasal Cannula 6.00 Humidified 12/10/17 19:57 98.5 84 32 131/71 (91) 90 12/10/17 19:25 93 Nasal Cannula 6.00 12/10/17 19:00 91 Nasal Cannula 6.00 Humidified 12/10/17 18:58 76 27 104/64 (77) 91 12/10/17 18:00 86 23 102/69 (80) 94 12/10/17 18:00 86 12/10/17 17:00 76 18 92/52 (65) 93 12/10/17 16:00 98.3 72 21 95/54 (68) 90 12/10/17 16:00 68 12/10/17 15:14 80 15 97/68 (78) 92 12/10/17 15:00 76 12/10/17 14:04 86 26 154/56 (88) 91 12/10/17 14:00 82 12/10/17 13:01 78 21 115/61 (79) 91 12/10/17 13:00 78 12/10/17 12:01 96.7 68 18 103/53 (70) 87 12/10/17 12:00 68 12/10/17 11:00 92 12/10/17 11:00 86 19 103/62 (76) 95 12/10/17 10:02 100 20 90/60 (70) 95 12/10/17 10:00 86 12/10/17 09:01 80 15 104/62 (76) 94 12/10/17 09:00 80 12/10/17 08:01 98.7 66 13 87/61 (70) 95 12/10/17 08:00 62 12/10/17 07:40 96 40 12/10/17 07:01 88 18 106/70 (82) 97 12/10/17 07:00 97 Bi-Pap 40 12/10/17 06:29 90 12/10/17 06:21 68 15 102/67 (79) 97 12/10/17 05:27 86 22 100/66 (77) 93 12/10/17 04:35 82 12/10/17 04:01 98.8 74 23 120/65 (83) 92 12/10/17 04:00 94 50 12/10/17 03:01 72 18 104/61 (75) 95 12/10/17 02:13 80 12/10/17 02:01 66 17 96/62 (73) 93 12/10/17 01:10 96 50 12/10/17 01:01 68 18 109/69 (82) 93 12/10/17 00:01 98.0 84 22 117/68 (84) 98 12/10/17 00:00 86 Physical Exam CONSTITUTIONAL/GENERAL: This is an adequately nourished patient, in no apparent distress. TUBES/LINES/DRAINS: SKIN: No jaundice, rashes, or lesions. . Skin temperature appropriate. Not diaphoretic. HEAD: Atraumatic. Normocephalic. EYES: Pupils equal and round and reactive. Extraocular motions intact. No scleral icterus. No injection or drainage. Fundi not examined. ENT: Hearing grossly normal. Nose without bleeding or purulent drainage. Throat without visible erythema, exudates, masses, or lesions. NECK: Trachea midline. Supple, nontender. No palpable thyroid enlargement or nodularity. CARDIOVASCULAR: Regular rate and rhythm without murmurs, gallops, or rubs. No JVD. Peripheral pulses symmetric. Pacxemaker in place L chest site OK RESPIRATORY/CHEST: Symmetric, unlabored respirations. Clear to auscultation. Breath sounds equal bilaterally. No wheezes, rales, or rhonchi. GASTROINTESTINAL: Abdomen soft, non-tender, nondistended. No hepato-splenomegaly , or palpable masses. No guarding. Bowel sounds present. GENITOURINARY: Without palpable bladder distension. MUSCULOSKELETAL: Extremities without clubbing, cyanosis, or edema. No joint tenderness or effusion noted. No calf tenderness. No mottling or clubbing. Sp L BKA LYMPHATICS: No palpable cervical or supraclavicular adenopathy. NEUROLOGICAL: Awake and alert. Motor and sensory grossly within normal limits. Follows commands. Cognitively sharp. Moves all extremities. PSYCHIATRIC: No obvious anxiety/depression. no apparent hallucinations or other psychotic thought process. Laboratory Laboratory Tests Test 12/10/17 04:55 White Blood Count 16.3 Red Blood Count 4.55 Hemoglobin 13.7 Hematocrit 41.7 Mean Corpuscular Volume 91.7 Mean Corpuscular Hemoglobin 30.2 Mean Corpuscular Hemoglobin Concent 32.9 Red Cell Distribution Width 13.0 Platelet Count 210 Mean Platelet Volume 10.4 Neutrophils (%) (Auto) 89.0 Lymphocytes (%) (Auto) 6.4 Monocytes (%) (Auto) 3.6 Eosinophils (%) (Auto) 0.1 Basophils (%) (Auto) 0.9 Neutrophils # (Auto) 14.6 Lymphocytes # (Auto) 1.0 Monocytes # (Auto) 0.6 Eosinophils # (Auto) 0.0 Basophils # (Auto) 0.1 CBC Comment DIFF FINAL Differential Comment Prothrombin Time 29.1 Prothromb Time International Ratio 2.9 Blood Urea Nitrogen 33 Creatinine 0.99 Random Glucose 277 Calcium Level 8.7 Phosphorus Level 4.0 Magnesium Level 2.0 Sodium Level 137 Potassium Level 4.2 Chloride Level 100 Carbon Dioxide Level 31.3 Anion Gap 6 Estimat Glomerular Filtration Rate 77 Lactic Acid Level 1.5 Date/Time Source Procedure Growth Status 12/09/17 19:45 Blood Peripheral Aerobic Blood Culture - Preliminary NO GROWTH IN 1 DAY Resulted 12/09/17 19:45 Blood Peripheral Anaerobic Blood Culture - Preliminary NO GROWTH IN 1 DAY Resulted 12/10/17 17:00 Sputum Expectorated Sputum Gram Stain Pending Received 12/10/17 17:00 Sputum Expectorated Sputum Sputum Culture Pending Received 12/09/17 23:10 Urine Catheterized Urine - Final Complete Result Diagram: 12/10/17 0455 12/10/17 0455 Imaging Last Impressions Chest X-Ray 12/10/17 0600 Signed Impressions: CONCLUSION: Persistent cardiac silhouette enlargement. Minimal residual bilateral lower juliette g zone opacity likely representing atelectasis. Lower Extremity Ultrasound 12/08/17 0000 Signed Impressions: CONCLUSION: 1. The study is negative for lower extremity deep venous thrombosis. Assessment and Plan Assessment and Plan Mult kris problems PNA ? awaiting Leg result from reference lab cont levaquine cont cefepime, vanco will follow Evi Kee MD Dec 10, 2017 23:39
[2017-12-11] VITALS (43 sets, daily range): BP systolic 86–142; BP diastolic 49–95; PULSE 60–103; RESP 11–33; TEMP 97.7–98.7; O2SAT 88–97
[2017-12-11] MEDS: RESP: ALBUTEROL 2.5 MG/IPRATROPIUM 0.5 MG NEB (SCH) INH ×4 (03:20→21:25)
[2017-12-11] MEDS: CHLORHEXIDINE GLUCONATE 2 % 1 PACK (2 CLOTHS)(taper/protocol) TOPICAL SCH (04:00)
[2017-12-11] MEDS ORDERED: INSULIN ASPART 1,000 UNITS/10 ML VIAL SQ SCH (04:15)
[2017-12-11] MEDS ORDERED: Vancomycin Consult Pharmacy 1 EA OTHER SCH (04:15)
[2017-12-11] MEDS: CEFEPIME INJ 1,000 MG in SODIUM CHLORIDE 0.9% INJ 100 ML IV SCH ×3 (04:17→21:37)
[2017-12-11] MEDS: SODIUM CHLORIDE 0.9% FLUSH 10 ML FLUSH IV FLUSH PRN ×2 (04:17→05:19)
[2017-12-11] MEDS: VANCOMYCIN INJ 2,000 MG in SODIUM CHLORID 0.9% 500 ML INJ 500 ML IV SCH ×2 (05:19→17:12)
[2017-12-11 05:37] LABS: INTERNATIONAL NORMALIZED RATIO 2.4 RATIO; PROTHROMBIN TIME - PATIENT 24.1 SEC (9.8-11.6)
--- NOTE | 2017-12-11 06:45 | PD.CARD.PN ---
Subjective Subjective Remarks The patient has mild dyspnea which is improved. He denies any other cardiac symptoms. His sputum is clear. Telemetry reveals sinus rhythm/pacemaker/ nonsustained ventricular tachycardia. Chart reviewed. Objective Medications Current Medications Medications (Trade) Dose Ordered Sig/Chris Route Start Time Stop Time Status Last Admin (NS Flush) 2 ml UNSCH PRN IV FLUSH 12/08/17 08:30 12/11/17 05:19 (NS Flush) 2 ml BID IV FLUSH 12/08/17 09:00 12/10/17 20:20 (Tylenol) 650 mg Q6H PRN PO 12/08/17 08:30 (Salem 5-325 Mg) 1 tab Q4H PRN PO 12/08/17 08:30 (Morphine Inj) 2 mg Q2H PRN IV PUSH 12/08/17 08:30 (Pepcid Inj) 20 mg Q12HR IV PUSH 12/08/17 09:00 12/10/17 20:20 (Tears Naturale Opth Soln) 1 drop TID EACH EYE 12/08/17 09:00 12/10/17 17:14 (Zofran Inj) 4 mg Q6H PRN IV PUSH 12/08/17 08:30 (Duoneb Neb) 1 ampule Q6HR NEB INH 12/08/17 10:00 12/11/17 03:20 (Albuterol Neb) 2.5 mg Q2HR NEB PRN INH 12/08/17 08:30 (Iesha-Colace) 1 tab BID PO 12/08/17 09:00 12/10/17 20:21 (Milk Of Magnesia Liq) 30 ml Q12H PRN PO 12/08/17 08:30 (Senokot) 17.2 mg Q12H PRN PO 12/08/17 08:30 (Dulcolax Supp) 10 mg DAILY PRN RECTAL 12/08/17 08:30 (Lactulose Liq) 30 ml DAILY PRN PO 12/08/17 08:30 (Ecotrin Ec) 81 mg DAILY PO 12/09/17 09:00 12/10/17 09:53 (Coreg) 6.25 mg BID PO 12/08/17 21:00 12/10/17 20:20 (Pravachol) 40 mg HS PO 12/08/17 21:00 12/10/17 20:24 ([facility] Patient in critical care unit? Ass... Q361D .XX 12/08/17 09:15 (Chlorhexidine 2% Cloth) 3 pack DAILY@04 TOPICAL 12/09/17 04:00 12/13/17 04:01 12/11/17 04:00 (Chlorhexidine 2% Cloth) 3 pack UNSCH PRN TOPICAL 12/08/17 09:15 12/13/17 09:07 (D50w (Vial) Inj) 50 ml UNSCH PRN IV PUSH 12/08/17 09:15 (Glucagon Inj) 1 mg UNSCH PRN OTHER 12/08/17 09:15 (NovoLOG SUPPLEMENTAL SCALE) 1 ACHS SLIDING SCALE SQ 12/08/17 12:00 12/10/17 20:21 (SoluMEDROL INJ) 40 mg Q12HR IV PUSH 12/08/17 09:15 12/10/17 20:20 Potassium Chloride 100 ml @ 50 mls/hr Q2H PRN IV 12/08/17 09:45 Potassium Chloride 100 ml @ 50 mls/hr Q2H PRN IV 12/08/17 09:45 (K-Lyte Cl Eff) 50 meq UNSCH PRN PO 12/08/17 09:45 Potassium Chloride 100 ml @ 25 mls/hr UNSCH PRN IV 12/08/17 09:45 Potassium Chloride 100 ml @ 50 mls/hr Q2H PRN IV 12/08/17 09:45 Magnesium Sulfate 4 gm/Sodium Chloride 100 ml @ 50 mls/hr UNSCH PRN IV 12/08/17 09:45 (Mag-Ox) 800 mg UNSCH PRN PO 12/08/17 09:45 Magnesium Sulfate 2 gm/Sodium Chloride 100 ml @ 50 mls/hr UNSCH PRN IV 12/08/17 09:45 (K-Phos) 2,000 mg Q4H PRN PO 12/08/17 09:45 Sodium Phosphate 30 mmol/Sodium Chloride 250 ml @ 42 mls/hr UNSCH PRN IV 12/08/17 09:45 (K-Phos) 2,000 mg UNSCH PRN PO/TUBE 12/08/17 09:45 Potassium Phosphate 30 mmol/ Sodium Chloride 260 ml @ 42 mls/hr UNSCH PRN IV 12/08/17 09:45 Levofloxacin/ Dextrose 150 ml @ 100 mls/hr Q24H IV 12/08/17 10:00 12/10/17 09:53 (Pulmicort Respule Neb) 0.5 mg Q12HR NEB NEB 12/08/17 20:00 12/10/17 19:23 Pharmacy Profile Note ml @ 0 mls/hr UNSCH OTHER 12/09/17 16:15 (Coumadin) 2 mg DAILY@1600 PO 12/09/17 17:00 12/10/17 17:14 (Mycostatin Powder) 1 applic BID TOPICAL 12/09/17 21:00 12/10/17 20:26 Cefepime HCl 1000 mg/Sodium Chloride 100 ml @ 200 mls/hr Q8H IV 12/09/17 20:00 12/11/17 04:17 (Prinivil) 5 mg DAILY PO 12/11/17 09:00 (Lasix) 40 mg BID@,18 PO 12/10/17 18:00 12/10/17 17:14 (KCl) 20 meq Q12HR PO 12/10/17 21:00 12/10/17 20:24 (Levemir Inj) 20 units Q12HR SQ 12/10/17 21:00 12/10/17 20:22 (Tessalon) 100 mg TID PRN PO 12/10/17 17:45 12/10/17 18:13 Pharmacy Profile Note 0 ml @ 0 mls/hr UNSCH OTHER 12/11/17 04:15 Vancomycin HCl 2000 mg/Sodium Chloride 520 ml @ 250 mls/hr Q12H IV 12/11/17 06:00 12/11/17 05:19 ([facility] [place] [facility] Info) SPECIFIC LAB TO BE SATISH... ONCE ONCE .XX 12/13/17 05:45 12/13/17 05:46 Vital Signs / I&O Vital Signs Date Time Temp Pulse Resp B/P (MAP) Pulse Ox O2 Delivery O2 Flow Rate FiO2 12/11/17 05:52 84 23 129/76 (93) 95 12/11/17 04:53 86 20 113/75 (88) 95 12/11/17 04:10 92 40 12/11/17 04:00 62 12/11/17 03:53 98.1 62 19 103/65 (78) 90 12/11/17 02:54 68 18 108/74 (85) 93 12/11/17 02:00 92 Bi-Pap 40 12/11/17 02:00 62 12/11/17 01:54 60 12 86/63 (71) 91 12/11/17 01:20 92 40 12/11/17 00:55 66 17 95/49 (64) 94 12/11/17 00:00 74 12/11/17 00:00 95 Bi-Pap 40 12/10/17 23:55 98.8 70 20 111/70 (84) 94 12/10/17 23:00 60 18 97/70 (79) 90 12/10/17 22:05 97 Bi-Pap 40 12/10/17 22:05 93 40 12/10/17 22:00 66 12/10/17 21:56 80 24 103/58 (73) 91 12/10/17 20:57 74 16 109/65 (80) 96 12/10/17 20:00 84 12/10/17 20:00 92 Nasal Cannula 6.00 Humidified 12/10/17 19:57 98.5 84 32 131/71 (91) 90 12/10/17 19:25 93 Nasal Cannula 6.00 12/10/17 19:00 91 Nasal Cannula 6.00 Humidified 12/10/17 18:58 76 27 104/64 (77) 91 12/10/17 18:00 86 23 102/69 (80) 94 12/10/17 18:00 86 12/10/17 17:00 76 18 92/52 (65) 93 12/10/17 16:00 98.3 72 21 95/54 (68) 90 12/10/17 16:00 68 12/10/17 15:14 80 15 97/68 (78) 92 12/10/17 15:00 76 12/10/17 14:04 86 26 154/56 (88) 91 12/10/17 14:00 82 12/10/17 13:01 78 21 115/61 (79) 91 12/10/17 13:00 78 12/10/17 12:01 96.7 68 18 103/53 (70) 87 12/10/17 12:00 68 12/10/17 11:00 92 12/10/17 11:00 86 19 103/62 (76) 95 12/10/17 10:02 100 20 90/60 (70) 95 12/10/17 10:00 86 12/10/17 09:01 80 15 104/62 (76) 94 12/10/17 09:00 80 12/10/17 08:01 98.7 66 13 87/61 (70) 95 12/10/17 08:00 62 12/10/17 07:40 96 40 12/10/17 07:01 88 18 106/70 (82) 97 12/10/17 07:00 97 Bi-Pap 40 I/O 12/10/17 12/10/17 12/10/17 12/11/17 12/11/17 12/11/17 07:00 15:00 23:00 07:00 15:00 23:00 Intake Total 250 ml 600 ml 470 ml 160 ml Output Total 600 ml 975 ml 2250 ml 300 ml Balance -350 ml -375 ml -1780 ml -140 ml Intake Oral 250 ml 350 ml 370 ml 60 ml IV Total 250 ml 100 ml 100 ml Output Urine Total 600 ml 975 ml 2250 ml 300 ml # Voids 1 Physical Exam GENERAL: Well-nourished, well-developed patient in no apparent distress. SKIN: Warm and dry. NECK: JVD normal - less than or equal to 5 cm H20. CARDIOVASCULAR: Regular rate and rhythm without murmurs, gallops, or rubs. RESPIRATORY: Decreased breath sounds - equal bilaterally. No accessory muscle use. No rales or rubs. Mild end expiratory wheezes. PERIPHERY: No cyanosis, or edema. Laboratory Laboratory Tests Test 12/11/17 04:30 Prothrombin Time 24.1 SEC Prothromb Time International Ratio 2.4 RATIO Imaging Last 48 hours Impressions Chest X-Ray 12/10/17 0600 Signed Impressions: CONCLUSION: Persistent cardiac silhouette enlargement. Minimal residual bilateral lower juliette g zone opacity likely representing atelectasis. Assessment and Plan Assessment and Plan Problems: Shortness of breath-most likely pneumonia/COPD and perhaps a smaller component of congestive heart failure. Chronic systolic congestive heart failure-BNP relatively low. Hypertension Diabetes Hyperlipidemia Elevated troponin-nonspecific Hypercoagulable state Tobacco abuse disorder Recommendations: Continue present cardiac regimen including full anticoagulation. Low-cholesterol/salt/diabetic diet. Treatment of possible underlying pneumonia with primary service and infectious disease. Tobacco abuse-abstinence discussed.. We will sign off and be available if needed. All questions answered. Christian Rose MD Dec 11, 2017 06:45
[2017-12-11] MEDS: DOCUSATE SODIUM 50 MG/SENNA 8.6 MG TAB PO SCH ×2 (08:21→21:00)
[2017-12-11] MEDS: CARVEDILOL 6.25 MG TAB PO SCH ×2 (08:21→21:00)
[2017-12-11] MEDS: ASPIRIN EC 81 MG TABEC PO SCH (08:21)
[2017-12-11] MEDS: FUROSEMIDE 40 MG TAB PO SCH (08:21)
[2017-12-11] MEDS: POTASSIUM CHLORIDE 20 MEQ CONTROLLED RELEASE TAB PO SCH ×2 (08:21→21:36)
[2017-12-11] MEDS: methylPREDNISolone SOD SUCC 40 MG/1 ML VIAL IV PUSH SCH ×2 (08:21→21:36)
[2017-12-11] MEDS: SODIUM CHLORIDE 0.9% FLUSH 10 ML FLUSH IV FLUSH SCH ×2 (08:22→21:37)
[2017-12-11] MEDS: LISINOPRIL 5 MG TAB PO SCH (08:22)
[2017-12-11] MEDS: INSULIN ASPART SUPPLEMENTAL SCALE SQ SCH ×4 (08:22→21:35)
[2017-12-11] MEDS: NYSTATIN 100,000 U/GM PWD 15 GM BTL TOPICAL SCH ×2 (08:24→21:37)
[2017-12-11] MEDS: FAMOTIDINE 20 MG/2 ML VIAL IV PUSH SCH (08:28)
[2017-12-11] MEDS: ARTIFICIAL TEARS OPTH SOLN 15 ML BTL EACH EYE SCH ×3 (08:28→17:12)
[2017-12-11] MEDS: LEVOFLOXACIN 750 MG PREMIX INJ 150 ML IV SCH (08:28)
[2017-12-11] MEDS: INSULIN DETEMIR 100 UNITS/ML VIAL SQ SCH ×2 (09:00→21:35)
[2017-12-11] MEDS: RESP: BUDESONIDE 0.5 MG/2 ML NEB NEB SCH ×2 (09:55→21:25)
--- NOTE | 2017-12-11 12:45 | HHI.PR ---
Subjective Remarks Patient seen and evaluated in follow-up for respiratory failure is multifactorial. Overall improved. Tolerating antibiotics well without difficulty. Chart reviewed. 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 Vital Signs Date Time Temp Pulse Resp B/P (MAP) Pulse Ox O2 Delivery O2 Flow Rate FiO2 12/11/17 11:10 97.7 92 33 106/69 (81) 97 12/11/17 10:50 78 21 102/65 (77) 89 12/11/17 10:00 70 12/11/17 09:55 94 Nasal Cannula 6.00 12/11/17 09:50 82 16 114/78 (90) 95 12/11/17 08:51 72 26 106/65 (79) 90 12/11/17 08:05 74 27 103/57 (72) 92 12/11/17 08:00 68 12/11/17 07:51 76 14 88/51 (63) 91 12/11/17 07:10 97.7 79 24 116/64 (81) 92 12/11/17 07:00 95 Nasal Cannula 5.00 12/11/17 07:00 76 20 94 12/11/17 06:52 86 29 116/64 (81) 92 12/11/17 06:00 74 12/11/17 05:52 84 23 129/76 (93) 95 12/11/17 04:53 86 20 113/75 (88) 95 12/11/17 04:10 92 40 12/11/17 04:00 62 12/11/17 03:53 98.1 62 19 103/65 (78) 90 12/11/17 02:54 68 18 108/74 (85) 93 12/11/17 02:00 92 Bi-Pap 40 12/11/17 02:00 62 12/11/17 01:54 60 12 86/63 (71) 91 12/11/17 01:20 92 40 12/11/17 00:55 66 17 95/49 (64) 94 12/11/17 00:00 74 12/11/17 00:00 95 Bi-Pap 40 12/10/17 23:55 98.8 70 20 111/70 (84) 94 12/10/17 23:00 60 18 97/70 (79) 90 12/10/17 22:05 97 Bi-Pap 40 12/10/17 22:05 93 40 6/11/18 22:00 66 12/10/17 21:56 80 24 103/58 (73) 91 12/10/17 20:57 74 16 109/65 (80) 96 12/10/17 20:00 84 12/10/17 20:00 92 Nasal Cannula 6.00 Humidified 12/10/17 19:57 98.5 84 32 131/71 (91) 90 12/10/17 19:25 93 Nasal Cannula 6.00 12/10/17 19:00 91 Nasal Cannula 6.00 Humidified 12/10/17 18:58 76 27 104/64 (77) 91 12/10/17 18:00 86 23 102/69 (80) 94 12/10/17 18:00 86 12/10/17 17:00 76 18 92/52 (65) 93 12/10/17 16:00 98.3 72 21 95/54 (68) 90 12/10/17 16:00 68 12/10/17 15:14 80 15 97/68 (78) 92 12/10/17 15:00 76 12/10/17 14:04 86 26 154/56 (88) 91 12/10/17 14:00 82 12/10/17 13:01 78 21 115/61 (79) 91 12/10/17 13:00 78 I/O 12/10/17 12/10/17 12/10/17 12/11/17 12/11/17 12/11/17 07:00 15:00 23:00 07:00 15:00 23:00 Intake Total 250 ml 600 ml 470 ml 160 ml 480 ml Output Total 600 ml 975 ml 2250 ml 300 ml 1825 ml Balance -350 ml -375 ml -1780 ml -140 ml -1345 ml Intake Oral 250 ml 350 ml 370 ml 60 ml 480 ml IV Total 250 ml 100 ml 100 ml Output Urine Total 600 ml 975 ml 2250 ml 300 ml 1825 ml # Voids 1 # Bowel Movements 1 Result Diagram: 12/10/17 0455 12/10/17 0455 Imaging Last Impressions Chest X-Ray 12/10/17 0600 Signed Impressions: CONCLUSION: Persistent cardiac silhouette enlargement. Minimal residual bilateral lower juliette g zone opacity likely representing atelectasis. Lower Extremity Ultrasound 6/9/18 0000 Signed Impressions: CONCLUSION: 1. The study is negative for lower extremity deep venous thrombosis. Objective Remarks GENERAL: This is a well-nourished, well-developed patient, in no apparent distress. CARDIOVASCULAR: Regular rate and rhythm without murmurs, gallops, or rubs. RESPIRATORY: No wheezes rales or rhonchi appreciated with decreased airflow bilaterally GASTROINTESTINAL: Abdomen soft, non-tender, nondistended. Normal active bowel sounds MUSCULOSKELETAL: Status post left AKA , +1 edema right lower extremity, upper extremities without clubbing, cyanosis, or edema. NEURO: Alert & Oriented x4 to person, place, time, situation. Moves all ext x4 A/P Problem List: (1) Acute respiratory failure with hypoxia and hypercapnia ICD Code: J96.01 - Acute respiratory failure with hypoxia; J96.02 - Acute respiratory failure with hypercapnia Plan: Improved and currently only on 6 L however becomes hypoxemic with anything less. No home O2 Multifactorial due to acute pneumonia, probable COPD exacerbation (never formally diagnosed) and CHF exacerbation Recheck ABG in a.m. 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
[2017-12-11] MEDS: BUMETANIDE 1 MG TAB PO SCH (17:12)
[2017-12-11] MEDS: WARFARIN SOD 2 MG TAB PO SCH (17:13)
--- NOTE | 2017-12-11 19:29 | MB ---
cc: Margarito Madison MD, Arjun D MD DATE: 12/11/2017 REQUESTING PHYSICIAN: Dr. Dye REASON FOR CONSULTATION: Evaluate for COPD and obstructive sleep apnea. HISTORY OF PRESENT ILLNESS: Mr. Agudelo is a 57-year-old male with history of congestive heart failure, cardiomyopathy and AICD placement. The patient has congestive heart failure, diabetes mellitus and left BKA. The patient states that his father about a month or so ago. His mother is demented and was very agitated. He was busy taking care of mother and ignored his own health. He started smoking more, up to 2 packs a day, was not taking his diuretics. He woke up suddenly with shortness of breath. He did notice increased swelling in his legs. Recently he has had cough and cold and was treated with antibiotics. He did not have any chest pain. No nausea, vomiting. Because of worsening of his symptoms, he came into the hospital. He was found to be in hypoxic hypercapnic respiratory failure. His blood gas pH 7.32, PCO2 of 53, pO2 of 71, bicarbonate 26 on 100% BiPAP. The patient was treated with diuretics and placed on BiPAP treatment. Now, he is weaned down to nasal cannula. He has a history of COPD and possible sleep apnea, but never been tested for sleep apnea. PAST MEDICAL HISTORY: Significant history of coronary artery disease, AICD placement, congestive heart failure, COPD, diabetes mellitus, peripheral artery disease, history of left BKA. ASD. He is on chronic anticoagulation, right fem-pop bypass surgery. CURRENT MEDICATIONS: 1. Bumex 1 mg twice a day 2. Albuterol Atrovent nebulizer treatment. 3. Lisinopril 5 mg a day, 4. Insulin 27 units q.12 hours. 3. Vancomycin 2 2 q 12 hours. 4. Tessalon 100 mg 3 times a day. 5. Rocephin 1 gram q 8 hours. 6. Coumadin 2 mg a day. 7. Aspirin 81 mg a day. 8. Coreg 6.25 mg twice a day. 9. Pravachol 40 mg a day. 10. Pulmicort nebulizer treatment twice a day. 11. Levaquin 750 mg a day. ALLERGIES: NO KNOWN DRUG ALLERGIES. SOCIAL HISTORY: He is , lives with a other roommate. He has a history of smoking 1-2 packs a day. Uses marijuana off and on. History of alcohol use. 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 He has not worked for the last 8 years after his amputation. FAMILY HISTORY: He has 2 [place]. Father recently . Mother admitted to the prison. REVIEW OF SYSTEMS: He denies any seizure, stroke or epilepsy. No DVT or pulmonary embolism. PHYSICAL EXAMINATION: GENERAL: Well built, obese male, mildly short of breath. VITAL SIGNS: Blood pressure 111/68, heart rate 100, respirations 20, temperature 98.7. HEENT: Pupils are equal and reactive to light. He has left pterygium with his eye extending towards the midline. NECK: Supple. JVD not raised. CHEST: He has basilar rales. HEART: S1, S2 normal. ABDOMEN: Obese, nontender. Bowel sounds present. EXTREMITIES: 1+ edema. He has left below knee amputation. CENTRAL NERVOUS SYSTEM: Alert and awake x 3. No focal deficit. LABORATORY DATA: WBC count 16.3, hemoglobin 13.1, hematocrit 41.1, MCV 91, platelet count 210. Sodium 137, potassium 4.2, chloride 100, CO2 of 31, BUN 33, creatinine 0.99. IMPRESSION: 1. Hypercapnic respiratory failure. 2. Frequent episodes of congestive heart failure. 3. Bilateral lung infiltrate. 4. Diabetes mellitus. 5. Peripheral artery disease, status post left below low knee amputation and history of right fem-pop bypass. 6. Likely obstructive sleep apnea. PLAN: I discussed with the patient. Advised him strongly to quit smoking. He is being diuresed. Continue aerosol treatment. Monitor his blood sugar. Continue with antibiotic. He is on Coumadin. Monitor INR. Oxygen to keep the saturation greater than 90%. CPAP at nighttime. He will need sleep study as outpatient. Further treatment will depend on the course sin the hospital. Thank you, Dr. Dye, for this consult. MD HAY Ibarra/SA , 06:43 PM , 07:27 PM
[2017-12-11] MEDS: PRAVASTATIN SOD 40 MG TAB PO SCH (21:35)
[2017-12-12] VITALS (20 sets, daily range): BP systolic 89–136; BP diastolic 52–80; PULSE 60–94; RESP 8–25; TEMP 97–98.7; O2SAT 88–96
[2017-12-12] MEDS: CHLORHEXIDINE GLUCONATE 2 % 1 PACK (2 CLOTHS)(taper/protocol) TOPICAL SCH (04:00)
[2017-12-12] MEDS: RESP: ALBUTEROL 2.5 MG/IPRATROPIUM 0.5 MG NEB (SCH) INH ×4 (04:04→20:44)
[2017-12-12] MEDS: CEFEPIME INJ 1,000 MG in SODIUM CHLORIDE 0.9% INJ 100 ML IV SCH (04:14)
[2017-12-12 04:54] LABS: INTERNATIONAL NORMALIZED RATIO 2.2 RATIO
[2017-12-12] MEDS: INSULIN ASPART SUPPLEMENTAL SCALE SQ SCH ×5 (06:06→22:17)
[2017-12-12] MEDS: VANCOMYCIN INJ 2,000 MG in SODIUM CHLORID 0.9% 500 ML INJ 500 ML IV SCH (06:08)
[2017-12-12] MEDS: INSULIN DETEMIR 100 UNITS/ML VIAL SQ SCH ×2 (08:29→22:18)
[2017-12-12] MEDS: BUMETANIDE 1 MG TAB PO SCH ×2 (08:29→17:55)
[2017-12-12] MEDS: NYSTATIN 100,000 U/GM PWD 15 GM BTL TOPICAL SCH (08:29)
[2017-12-12] MEDS: SODIUM CHLORIDE 0.9% FLUSH 10 ML FLUSH IV FLUSH SCH ×2 (08:30→22:15)
[2017-12-12] MEDS: POTASSIUM CHLORIDE 20 MEQ CONTROLLED RELEASE TAB PO SCH ×2 (08:30→22:15)
[2017-12-12] MEDS: DOCUSATE SODIUM 50 MG/SENNA 8.6 MG TAB PO SCH ×2 (08:30→21:00)
[2017-12-12] MEDS: ARTIFICIAL TEARS OPTH SOLN 15 ML BTL EACH EYE SCH ×3 (08:30→17:55)
[2017-12-12] MEDS: methylPREDNISolone SOD SUCC 40 MG/1 ML VIAL IV PUSH SCH (08:30)
[2017-12-12] MEDS: CARVEDILOL 6.25 MG TAB PO SCH ×2 (08:30→22:15)
[2017-12-12] MEDS: ASPIRIN EC 81 MG TABEC PO SCH (08:30)
[2017-12-12] MEDS: LISINOPRIL 5 MG TAB PO SCH (08:31)
[2017-12-12] MEDS: LEVOFLOXACIN 750 MG PREMIX INJ 150 ML IV SCH (08:31)
[2017-12-12] MEDS: RESP: BUDESONIDE 0.5 MG/2 ML NEB NEB SCH ×2 (10:38→20:44)
--- NOTE | 2017-12-12 11:10 | HHI.FF ---
Face to Face Verification Diagnosis: (1) Acute respiratory failure with hypoxia and hypercapnia (2) Acute decompensated heart failure Home Health Nursing Order: Medical education Signs/symptoms of disease process CHF education I have seen patient Tre Agudelo on 12/12/17. My clinical findings support the need for the requested home health care services because: Patient has SOB Med compliance is questionable I certify that my clinical findings support that this patient is homebound because: Unsteady gait/balance Cally Arteaga MD Dec 12, 2017 11:10
--- NOTE | 2017-12-12 11:22 | HHI.PR ---
Subjective Remarks She seen and evaluated in follow-up for respiratory failure secondary to CHF and pneumonia. Patient probably has COPD will need outpatient evaluation. Now on 2 L O2 Objective Vitals Vital Signs Date Time Temp Pulse Resp B/P (MAP) Pulse Ox O2 Delivery O2 Flow Rate FiO2 12/12/17 10:40 95 Nasal Cannula 3.00 12/12/17 09:00 70 12/12/17 08:00 60 12/12/17 06:00 60 12/12/17 06:00 60 12 113/73 (86) 95 12/12/17 05:03 62 16 93/52 (66) 96 12/12/17 05:00 62 17 89/54 (66) 96 12/12/17 04:03 95 40 12/12/17 04:00 70 12/12/17 04:00 97.8 70 18 120/80 (93) 94 12/12/17 03:00 68 16 112/77 (89) 94 12/12/17 02:00 62 12/12/17 02:00 62 14 111/71 (84) 96 12/12/17 01:00 68 20 109/67 (81) 93 12/12/17 00:25 96 40 12/12/17 00:00 60 12/12/17 00:00 97.9 66 21 113/68 (83) 95 12/11/17 23:44 66 21 113/68 (83) 95 12/11/17 23:00 66 29 111/59 (76) 97 12/11/17 23:00 96 Bi-Pap 12/11/17 22:35 96 40 12/11/17 22:15 91 Bi-Pap 40 12/11/17 22:00 78 12/11/17 22:00 74 16 124/85 (98) 96 12/11/17 21:25 94 Nasal Cannula 4.00 12/11/17 21:00 68 21 103/59 (74) 88 12/11/17 20:00 97.7 80 11 117/71 (86) 94 12/11/17 20:00 86 12/11/17 20:00 93 Nasal Cannula Humidified 12/11/17 18:00 84 12/11/17 17:00 74 12/11/17 16:00 70 12/11/17 15:36 98.7 103 23 111/68 (82) 95 12/11/17 15:00 72 12/11/17 14:48 82 14 142/95 (111) 97 12/11/17 14:00 76 12/11/17 13:48 76 17 116/67 (83) 95 12/11/17 13:00 78 12/11/17 12:49 94 27 129/72 (91) 97 I/O 12/11/17 12/11/17 12/11/17 12/12/17 12/12/17 12/12/17 07:00 15:00 23:00 07:00 15:00 23:00 Intake Total 680 ml 480 ml 2910 ml 390 ml Output Total 300 ml 2125 ml 4100 ml 1500 ml Balance 380 ml -1645 ml -1190 ml -1110 ml Intake Oral 60 ml 480 ml 1940 ml 290 ml IV Total 620 ml 970 ml 100 ml Output Urine Total 300 ml 2125 ml 4100 ml 1500 ml # Bowel Movements 1 1 Result Diagram: 12/10/17 0455 12/10/17 0455 Objective Remarks GENERAL: This is a well-nourished, well-developed patient, in no apparent distress. CARDIOVASCULAR: Regular rate and rhythm without murmurs, gallops, or rubs. RESPIRATORY: No wheezes rales or rhonchi appreciated with decreased airflow bilaterally GASTROINTESTINAL: Abdomen soft, non-tender, nondistended. Normal active bowel sounds MUSCULOSKELETAL: Status post left AKA , +1 edema right lower extremity, upper extremities without clubbing, cyanosis, or edema. NEURO: Alert & Oriented x4 to person, place, time, situation. Moves all ext x4 A/P Problem List: (1) Acute respiratory failure with hypoxia and hypercapnia ICD Code: J96.01 - Acute respiratory failure with hypoxia; J96.02 - Acute respiratory failure with hypercapnia Plan: Improved and currently only on 2 L however becomes hypoxemic with anything less. No home O2 Multifactorial due to acute pneumonia, probable COPD exacerbation (never formally diagnosed) and CHF exacerbation Recheck ABG in a.m. 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
[2017-12-12] MEDS: WARFARIN SOD 2 MG TAB PO SCH (17:55)
[2017-12-12] MEDS: predniSONE 20 MG TAB PO SCH (22:15)
[2017-12-12] MEDS: PRAVASTATIN SOD 40 MG TAB PO SCH (22:15)
[2017-12-13] VITALS: BP 111/58; PULSE 68; RESP 20; TEMP 97; O2SAT 96
[2017-12-13 00:35] VITALS: O2SAT 93
[2017-12-13] MEDS: NYSTATIN 100,000 U/GM PWD 15 GM BTL TOPICAL SCH ×2 (03:10→09:10)
[2017-12-13] MEDS: INSULIN ASPART SUPPLEMENTAL SCALE SQ SCH ×3 (03:16→12:16)
[2017-12-13] MEDS: RESP: ALBUTEROL 2.5 MG/IPRATROPIUM 0.5 MG NEB (SCH) INH ×2 (03:24→08:09)
[2017-12-13 03:40] VITALS: O2SAT 93
[2017-12-13] MEDS: CHLORHEXIDINE GLUCONATE 2 % 1 PACK (2 CLOTHS)(taper/protocol) TOPICAL SCH (04:00)
[2017-12-13] MEDS ORDERED: PHARMACY ORDERED LAB ONE (05:45)
[2017-12-13 06:01] LABS: INTERNATIONAL NORMALIZED RATIO 1.8 RATIO; PROTHROMBIN TIME - PATIENT 18.7 SEC (9.8-11.6)
[2017-12-13] MEDS: RESP: BUDESONIDE 0.5 MG/2 ML NEB NEB SCH (08:09)
[2017-12-13 08:10] VITALS: O2SAT 95
[2017-12-13 08:54] VITALS: BP 140/84; PULSE 87; RESP 16; TEMP 98.5; O2SAT 93
[2017-12-13] MEDS ORDERED: LEVOFLOXACIN 750 MG TAB PO SCH (09:00)
[2017-12-13] MEDS: DOCUSATE SODIUM 50 MG/SENNA 8.6 MG TAB PO SCH (09:00)
[2017-12-13] MEDS: INSULIN DETEMIR 100 UNITS/ML VIAL SQ SCH (09:07)
[2017-12-13] MEDS: predniSONE 20 MG TAB PO SCH (09:08)
[2017-12-13] MEDS: LISINOPRIL 5 MG TAB PO SCH (09:08)
[2017-12-13] MEDS: CARVEDILOL 6.25 MG TAB PO SCH (09:09)
[2017-12-13] MEDS: SODIUM CHLORIDE 0.9% FLUSH 10 ML FLUSH IV FLUSH SCH (09:09)
[2017-12-13] MEDS: POTASSIUM CHLORIDE 20 MEQ CONTROLLED RELEASE TAB PO SCH (09:09)
[2017-12-13] MEDS: BUMETANIDE 1 MG TAB PO SCH (09:09)
[2017-12-13] MEDS: ASPIRIN EC 81 MG TABEC PO SCH (09:09)
[2017-12-13] MEDS: ARTIFICIAL TEARS OPTH SOLN 15 ML BTL EACH EYE SCH (09:10)
[2017-12-13] MEDS ORDERED: PRED10PA2 PO (11:57)
[2017-12-13] MEDS ORDERED: BUME0.5T PO (11:57)
[2017-12-13] MEDS ORDERED: LEVA750T9 PO (11:57)
--- NOTE | 2017-12-13 11:58 | HHI.DCPOC ---
Discharge Care Plan Diagnosis: (1) Acute respiratory failure with hypoxia and hypercapnia Goals to Promote Your Health * To prevent worsening of your condition and complications * To maintain your health at the optimal level Directions to Meet Your Goals Take your medications as prescribed Follow your dietary instruction Follow activity as directed Keep your appointments as scheduled Take your immunizations and boosters as scheduled If your symptoms worsen call your PCP, if no PCP go to Urgent Care Center or Emergency Room Smoking is Dangerous to Your Health. Avoid second hand smoke Call the 24-hour hour crisis hotline for domestic abuse at Cally Arteaga MD Dec 13, 2017 11:58
[2017-12-13] MEDS ORDERED: WARFARIN SOD 2 MG TAB PO ONE (16:00)
== END 2017-12-13 12:53 | disposition home or self-care (01) | DRG 189 ==
LOC: PHED 06:46 → PHEDA 08:25 → PHICU 09:20 → PH3B 12-12 15:53
PROVIDERS: ADMIT Hospitalist; ATTEND Hospitalist
PROC: 5A09457 Assistance with Respiratory Ventilation, 24-96 Consecutive Hours, Continuous Positive Airway Pressure (ICD-10-PCS; principal; 2017-12-08)
DX: J96.01 Acute respiratory failure with hypoxia (principal); I50.23 Acute on chronic systolic (congestive) heart failure; I47.2 Ventricular tachycardia; E87.2 Acidosis; I11.0 Hypertensive heart disease with heart failure; J18.9 Pneumonia, unspecified organism; E11.42 Type 2 diabetes mellitus with diabetic polyneuropathy; J44.0 Chronic obstructive pulmonary disease with (acute) lower respiratory infection; J44.1 Chronic obstructive pulmonary disease with (acute) exacerbation; J98.11 Atelectasis; Z68.42 Body mass index [BMI] 45.0-49.9, adult; E11.51 Type 2 diabetes mellitus with diabetic peripheral angiopathy without gangrene; I25.10 Atherosclerotic heart disease of native coronary artery without angina pectoris; J96.02 Acute respiratory failure with hypercapnia; I87.8 Other specified disorders of veins; E78.5 Hyperlipidemia, unspecified; D64.9 Anemia, unspecified; E66.9 Obesity, unspecified; F12.90 Cannabis use, unspecified, uncomplicated; F17.210 Nicotine dependence, cigarettes, uncomplicated; G47.33 Obstructive sleep apnea (adult) (pediatric); I25.5 Ischemic cardiomyopathy; Z91.14 Patient's other noncompliance with medication regimen; I25.2 Old myocardial infarction; Z95.810 Presence of automatic (implantable) cardiac defibrillator; Z79.82 Long term (current) use of aspirin; Z79.01 Long term (current) use of anticoagulants; Z79.899 Other long term (current) drug therapy; Z79.84 Long term (current) use of oral hypoglycemic drugs; Z89.612 Acquired absence of left leg above knee
CPT/HCPCS: 36600; 71045; 80048; 80053; 80076; 82550; 82805; 82948; 83605; 83735; 83880; 84100; 84145; 84443; 84484; 85025; 85610; 85730; 87040; 87070; 87205; 87449; 87641; 87804; 93005; 93306; 93971; 94002; 94003; 94150; 94618; 94640; 94664; 96374; 96375; J0692; J1205; J1815; J1940; J1956; J2270; J2920; J3370; J7040; J7512; J7626